=== PATIENT | male | born 1965 | race Caucasian/White ===

== ENCOUNTER 2018-12-02 19:33 | Emergency (ER) | payer BC, SELFPAY ==
[2018-12-02 19:34] VITALS: BP 165/86; PULSE 85; RESP 16; TEMP 36.7; O2SAT 98; BMI 29.7
--- NOTE | 2018-12-02 20:11 | ED.DCSUM_ITS ---
- ER Visit Summary Date of Service: 12/02/18 Chief Complaint: Lower back pain. History of Present Illness: The patient is a 53 M history of BPH and prior back issues but no prior back surgery. Patient states Monday about a week ago he was dragging a large barrel that weighed several 100 pounds. The next day started having pain in his lower back is progressively worsened. He denies any bowel or bladder incontinence or lower extremity weakness. No fever. He had no fall or other injury. He denies any bowel or bladder incontinence. Patient saw his chiropractor at an adjusted did not improve his symptoms. Also saw his primary care physician's office and was placed on Naprosyn and Flexeril with l imited relief. Physical Examination: Middle-aged male vital signs stable. He is afebrile. He does not look septic or toxic. HEENT exam unremarkable. Neck nontender. Lungs clear to auscultation. Heart regular rhythm no murmur. Abdomen is soft and nontender normal bowel sounds no peritoneal signs. No pulsatile mass. Extremities moves all 4. Neurovascular intact. 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 Lower extremities he has no cauda equina. No saddle anesthesia. Normal medial thigh sensation. Normal dorsi plantar flexion. Negative straight leg raise bilaterally. Back exam he is tenderness over his proximal lumbar spine around L1-2 area. There is no redness or warmth. There is no ecchymosis or bruising or signs of trauma. There is really no significant paraspinal soft tissue pain or spasm. There is no bony deformities. Thoracic spine is nontender. Neurologically is awake and alert with no focal motor or sensory deficits and again no cauda equina or radiculopathy at this time. Test Results: None Emergency Department Course and Treatment: Patient be treated with IM morphine. IM Toradol. P.o. Zofran. Treatment Plan: Discharged home. He is already on Naprosyn and Flexeril at home. Follow-up with primary care physician if this is not improving. If his pain continues he may need an MRI. Disposition: Discharge Impression: Acute low back pain Rule out acute disc inflammation This note was generated with [employer] dictation software. It may contain incorrect words, spelling, and punctuation that were not noted in review of the chart prior to signing ED Disposition - Plan for ED Patient: Referrals: Bursley,Margarito, MD [Primary Care Provider] -
--- NOTE | 2018-12-02 20:14 | DCINST.ED_ITS ---
ED Disposition - Plan for ED Patient: Disposition: Home or Assisted Living Instructions: BACK PAIN (Acute or Chronic) Prescriptions: Hydrocodone/Acetaminophen [Hagerman 10-325 Tablet] 1 ea PO 4X/DAY PRN PRN 3 Days #10 tab PRN Reason: Pain Score 1-12/13 Prescription Printed Referrals: Margarito Fraire MD [Primary Care Provider] - 1 Week if not improving Additional Instructions: Continue Naprosyn for pain and inflammation. Flexeril for muscle relaxant. I did write you a Hagerman as needed for more severe pain. Follow-up with your doctor if not improving you may need an MRI. If you develop leg weakness or bowel or bladder incontinence and need to return to be re-seen in the ER.
[2018-12-02] MEDS: Ketorolac 60 MG/2 ML Vial IM (20:26)
[2018-12-02] MEDS: Ondansetron 8 MG Tablet PO (20:26)
[2018-12-02] MEDS: morphine 10 MG/ML Syringe IM (20:26)
[2018-12-02 20:35] VITALS: PULSE 72; RESP 16
== END 2018-12-02 20:47 | disposition home or self-care (01) ==
PROVIDERS: Emergency Provider Emergency Medicine; Family Provider Family Medicine; PCP Family Medicine
DX: M54.5 Low back pain (principal); N40.0 Benign prostatic hyperplasia without lower urinary tract symptoms; Z72.0 Tobacco use
CPT/HCPCS: 96372; 99283

== ENCOUNTER 2019-05-09 00:32 | Emergency (ER) | payer SELFPAY ==
[2019-05-09 00:33] VITALS: BP 199/119; PULSE 76; RESP 15; TEMP 36.7; O2SAT 98; BMI 29.4
--- NOTE | 2019-05-09 00:42 | ED.DCSUM_ITS ---
History of Present Illness Chief Complaint: Chest Pain Informant: Patient Onset: Hours - 2 hours Context: Gradual Onset Current Severity: Moderate Maximum Severity: Moderate Narrative: Patient presents with proximally 2 hours of left-sided chest pressure. He does feel somewhat short of breath. He states he was doing some cleaning at the time. He was using some bleach but did not feel the chemicals were very strong. He does note increased shortness of breath with exertion over the past week. Patient denies known history of cardiac disease. He reports having a stress test approximately 6 years ago that he believes was unremarkable. He does report a history of high cholesterol but does not take any medication for it. He is a smoker. He has a family history of heart disease. - Past Medical History (1) Kidney stone Status: Resolved (2) Back pain Status: Chronic (3) High cholesterol Status: Chronic Past Medical History - Allergies and Home Meds Allergies/Adverse Reactions: Allergies diphenhydramine [From Benadryl] Allergy (Verified 05/09/19 00:37) Hives Primary Care Physician: Margarito Fraire MD [Primary Care Provider] - Prior records reviewed: Yes Lives: Spouse/ Significant Other Smoking Status: Current every day smoker Review of Systems General: Denies: Chills, Fever Eyes: Denies: Visual changes - bilaterally ENT: Denies: Bilateral ear pain Cardiovascular: Reports: Chest pain Respiratory: Reports: Dyspnea. Denies: Cough, Sputum Gastrointestinal: Denies: Abdominal pain, Nausea, Vomiting, Diarrhea Genitourinary: Denies: Dysuria Musculoskeletal: Denies: Extremity Pain Skin: Denies: Rash Neurological: Denies: Headache Allergy: Denies: Uticaria Physical Exam Vital Signs/Narrative: Vital Signs Temp Pulse Resp BP Pulse Ox 05/09/19 00:33 98.0 F 76 15 199/119 H 98 Inital Vital Signs reviewed: Yes General: Well nourished, Well developed Head: Normocephalic ENT: Moist mucous membranes Neck: Supple Cardiovascular: Regular rate, Regular rhythm Respiratory: No distress, CTA bilaterally, Chest nontender Abdomen: Soft, Nontender Skin: Normal color Neurological: Alert, Oriented x3 Psychological: Normal affect Diagnostic/Tx/Re-eval Impressions Chest X-Ray 05/09/19 00:42 IMPRESSION: Basilar atelectasis or scarring, unchanged. Electronically Signed: Sharita Miller MD at 1:30 EST , Service support , Chest CTA 05/09/19 01:12 IMPRESSION: No demonstrated pulmonary embolism, aneurysm, leak or arterial dissection. Cardiomegaly. Compression of dependent parenchyma, atelectasis or scarring in the left base. Mild hazy parenchymal opacification likely exaggerated by low lung volume. Etiology such as pneumonitis possible. Electronically Signed: Sharita Miller MD at 2:26 EST , Service support , 05/09/19 00:42 Chest 1 View (Portable) [RAD] Stat 05/09/19 01:12 CTA Chest W/WO Contrast [CT] Stat Laboratory Results 05/09/19 05/09/19 00:40 00:40 WBC 12.0 H RBC 5.73 Hgb 17.2 H Hct 51.8 MCV 90.4 MCH 30.0 MCHC 33.2 RDW Std Deviation 42.0 RDW Coeff of Terell 12.8 Plt Count 275 MPV 10.8 Immature Gran % (Auto) 0.300 Neut % (Auto) 62.5 Lymph % (Auto) 26.3 Ashley % (Auto) 8.8 Eos % (Auto) 1.4 Baso % (Auto) 0.7 Absolute Neuts (auto) 7.5 Absolute Lymphs (auto) 3.15 Nucleated RBC % 0 Sodium 141 Potassium 3.9 Chloride 107 Carbon Dioxide 30.0 Anion Gap 4 L BUN 18 Creatinine 1.08 Estim Creat Clear Calc 83.28 Est GFR (MDRD) Af Amer 91 Est GFR (MDRD) Non-Af 76 BUN/Creatinine Ratio 16.7 Glucose 104 Calcium 9.2 Troponin I < 0.015 - EKG Initial EKG Interpretation: Sinus Rhythm - Sinus at 75 with a bifascicular block. This is a new change when compared to prior study of December 2010. Follow-up EKG Interpretation: Sinus Rhythm - Sinus at 66 with a bifascicular block. No acute ischemia. - Medical Decision Making Patient was given aspirin, morphine, and Zofran on arrival. On repeat evaluation pain is improved. Patient's systolic blood pressures come down into the 160s with no further intervention. Test results are discussed with patient and at bedside. Patient does have risk factors for cardiac disease and will be admitted for observation overnight with cycling of cardiac enzymes and further evaluation. Addendum: Prior to evaluation by the hospitalist, significant other came to the nurses desk and stated the patient wanted to go home. I went back and discussed the risks with the patient. I did advise him at this time his troponin is negative, however he is only 2 hours of symptoms and I cannot guarantee that this is not his heart. He certainly has multiple risk factors. Patient is very adamant that he does not want to stay in the hospital and feels much improved at this time. He is encouraged to return at any time. I did advise him that if he goes home and has an event he may not make it back to the hospital. He voices understanding and agreement. is with him at bedside. She does raise concern that the patient does not currently have insurance and was not able to follow-up with his previously assigned doctor. I will give him information 5 Sanjana Thompson for follow-up as well. ED Disposition - Plan for ED Patient: Disposition: Home or Assisted Living Diagnosis: Chest pain Instructions: CHEST PAIN, Uncertain Cause Referrals: Sanjana Thompson [NON-STAFF] - As soon as possible
--- NOTE | 2019-05-09 00:42 | EKG12_ITS ---
Test Reason : CP Blood Pressure : / mmHG Vent. Rate : 075 BPM Atrial Rate : 075 BPM P-R Int : 156 ms QRS Dur : 148 ms QT Int : 406 ms P-R-T Axes : 043 -49 002 degrees QTc Int : 453 ms Normal sinus rhythm Right bundle branch block Left anterior fascicular block Bifascicular block Cannot rule out Inferior infarct (masked by fascicular block?) , age undetermined Abnormal ECG Confirmed by HUNTER GALEANO, ANDERSON ([id number]), department editor BRITANY COUGHLIN ([id number]) on 05/10/2019 8:12:07 AM Referred By: CARA Confirmed By:BASIA HARRISON MD
--- NOTE | 2019-05-09 00:42 | RAD_ITS ---
STUDY: X-RAY CHEST REASON FOR EXAM: Male, 53 years old. Chest pain that started 2 hours ago,cleaning.c/o sob TECHNIQUE: Single AP portable view of the chest. COMPARISON: 08/27/2012 FINDINGS: There are superimposed monitor leads. Compression of the tendon parenchyma. Likely bronchial wall thickening/bronchiectasis in the right base, unchanged. There is no demonstrated pleural abnormality. Normal size heart. Normal mediastinum and monik. Normal visualized pulmonary arteries. Normal visualized aortic arch and descending thoracic aorta. Normal visualized thoracic spine. Normal visualized ribs, clavicles, and shoulders. There is no demonstrated abnormality of the visualized soft tissue structures of the upper abdomen. RAD/Chest 1 View (Portable) IMPRESSION: Basilar atelectasis or scarring, unchanged. Electronically Signed: Sharita Miller MD at 1:30 EST , Service support ,
[2019-05-09 00:49] LABS: Absolute Lymphocyte Count 3.15 X10^3/uL (0.83-4.51); Absolute Neutrophil Count 7.5 X10^3/uL (2.0-7.7); Basophil# 0.08 X10^3/uL; Basophil% 0.7 % (0-1); Eosinophil# 0.17 X10^3/uL; Eosinophils% 1.4 % (0-5); Hematocrit 51.8 % (40-54); Hemoglobin 17.2 g/dL (13.0-16.5); Lymphocyte # 3.15 X10^3/ul (4.0); Lymphocyte % 26.3 % (19-41); Mean Corp Hgb Conc 33.2 g/dL (32-36); Mean Corpuscular Volume 90.4 fL (80-94); Mean Platelet Vol. 10.8 fl (6.2-12.0); Monocyte# 1.05 X10^3/uL; Monocyte% 8.8 % (0-10); NRBC Flagged by Analyzer 0 % (0-5); Neutrophil # 7.48 X10^3/uL (2.7-7.7); Neutrophil % 62.5 % (47-70); Platelet Count 275 K/mm3 (150-450); RBC Distribution Width CV 12.8 % (11.6-14.6); Red Blood Count 5.73 M/mm3 (4.6-6.2)
[2019-05-09] MEDS: Morphine 4 MG/ML Syringe IV (00:49)
[2019-05-09] MEDS: Aspirin 81 MG TAB.CHEW 324 MG PO (00:50)
[2019-05-09] MEDS: Ondansetron 4 MG/2 ML Vial IV (00:52)
[2019-05-09] MEDS: 0.9% Normal Saline 1,000 ML 150 ML IV (00:55)
[2019-05-09 00:57] VITALS: BP 162/104; PULSE 91; RESP 17; O2SAT 94
[2019-05-09 01:04] LABS: Anion Gap 4 (5-15); BUN 18 mg/dL (7-18); BUN/Creat Ratio 16.7 RATIO (10-20); Calcium,Total 9.2 mg/dL (8.5-10.1); Chloride 107 mmol/L (98-107); Creatinine, Serum 1.08 mg/dL (0.70-1.30); EST Glomerular Filtration Rate 76 mL/min (>60); Est Glom Filt Rate - Afr Amer 91 mL/min (>60); Estimated Creatinine Clearance 83.28 ml/min; Glucose 104 mg/dL (74-106); Potassium 3.9 mmol/L (3.5-5.1); Sodium Level 141 mmol/L (136-145)
--- NOTE | 2019-05-09 01:06 | EKG12_ITS ---
Test Reason : REPEAT Blood Pressure : / mmHG Vent. Rate : 066 BPM Atrial Rate : 066 BPM P-R Int : 162 ms QRS Dur : 154 ms QT Int : 424 ms P-R-T Axes : 049 -47 -05 degrees QTc Int : 444 ms Normal sinus rhythm Right bundle branch block Left anterior fascicular block Bifascicular block Cannot rule out Inferior infarct (masked by fascicular block?) , age undetermined Abnormal ECG Confirmed by HUNTER GALEANO, ANDERSON ([id number]), book editor BRITANY COUGHLIN ([id number]) on 05/10/2019 8:12:25 AM Referred By: CARA Confirmed By:BASIA HARRISON MD
--- NOTE | 2019-05-09 01:12 | CT_ITS ---
STUDY: CTA CHEST REASON FOR EXAM: Male, 53 years old. CP, SOB STARTED 2 HOURS AGO. H/O DVT RADIATION DOSAGE (If Supplied By Facility): CTDIvol = ( 13.85 ) mGy, DLP = ( 528.27 ) mGycm TECHNIQUE: The examination was performed with the intravenous administration of IV 100 ML ISOVUE 370. Post-processing of the angiographic images was performed, with multiplanar reformation and 3D reconstruction. There is image blurring as a result of cardiac motion. Diagnostic accuracy is somewhat reduced. However, there is substantial diagnostic information remaining available on this study. Individualized dose optimization techniques were used for this CT. COMPARISON: None. FINDINGS: Normal enhancement of the main pulmonary artery and right and left pulmonary arteries. Normal enhancement of the bilateral peripheral pulmonary arteries. There is no demonstrated pulmonary embolism. Normal thoracic aorta and visualized great vessels. There is no demonstrated aortic dissection. There is cardiomegaly. Normal mediastinum. Right hilar lymph node 1 x 1.5 cm. Normal visualized trachea and bronchi. The lungs are under expanded. There is elevation of the right hemidiaphragm. Hazy airspace disease in the lung bases and deep dependent parenchyma. Component of atelectasis or scarring in the left lower lobe.. Normal pleura. Normal chest wall structures. Normal osseous structures. Normal visualized upper abdomen. CT/CTA Chest W/WO Contrast IMPRESSION: No demonstrated pulmonary embolism, aneurysm, leak or arterial dissection. Cardiomegaly. Compression of dependent parenchyma, atelectasis or scarring in the left base. Mild hazy parenchymal opacification likely exaggerated by low lung volume. Etiology such as pneumonitis possible. Electronically Signed: Sharita Miller MD at 2:26 EST , Service support ,
[2019-05-09 02:11] VITALS: BP 162/104; PULSE 64; RESP 14; O2SAT 99
[2019-05-09 02:47] VITALS: BP 169/112; PULSE 87; RESP 18; O2SAT 94
== END 2019-05-09 02:48 | disposition home or self-care (01) ==
PROVIDERS: Emergency Provider Emergency Medicine; PCP Family Medicine
DX: R07.9 Chest pain, unspecified (principal); E78.00 Pure hypercholesterolemia, unspecified; I45.10 Unspecified right bundle-branch block; Z82.49 Family history of ischemic heart disease and other diseases of the circulatory system; Z86.718 Personal history of other venous thrombosis and embolism; Z87.442 Personal history of urinary calculi; Z88.8 Allergy status to other drugs, medicaments and biological substances
CPT/HCPCS: 71045; 71275; 80048; 84484; 85025; 93005; 96361; 96374; 96375; 99284; Q9967; A4216; J2405

== ENCOUNTER 2021-02-17 01:00 | Observation (INO) | payer MEDICAID, SELFPAY ==
[2021-02-17] VITALS (40 sets, daily range): BP systolic 136–211; BP diastolic 81–119; PULSE 61–88; RESP 10–20; TEMP 36.2–36.6; O2SAT 90–98; BMI 33.9; BMI 33.7
--- NOTE | 2021-02-17 01:14 | CT_ITS ---
STUDY: CTA CHEST AND CTA ABDOMEN/PELVIS WITH CONTRAST REASON FOR EXAM: Male, 55 years old. ? Dissection RADIATION DOSAGE (If Supplied By Facility): CTDIvol = ( 20.23 ) mGy, DLP = ( 1702.04 ) mGycm TECHNIQUE: The examination was performed with the intravenous administration of IV 100mL Isovue-370. Post-processing of the angiographic images was performed, with multiplanar reformation and 3D reconstruction. Individualized dose optimization techniques were used for this CT. COMPARISON: 05/09/2019. FINDINGS: CTA Chest Normal enhancement of the main pulmonary artery and right and left pulmonary arteries. Normal enhancement of the bilateral peripheral pulmonary arteries. There is no demonstrated pulmonary embolism. There is atherosclerotic calcification of the aortic arch with tortuosity. There is no demonstrated aortic dissection. Normal heart and pericardium. Normal mediastinum. Normal hilar regions. Normal visualized trachea and bronchi. The lungs are underexpanded. There is fullness of the central vessels suggestive of vascular crowding versus vascular congestion. There is mild posterior dependent atelectasis. Normal pleura. Normal chest wall structures. There are degenerative changes of thoracic spine. Upper abdominal structures are described in the distended accompanying CT of the abdomen and pelvis report. CTA Abdomen T Pelvis The visualized lung bases are unremarkable. The visualized portions of the heart are within normal limits. Normal liver. Normal gallbladder and extrahepatic biliary system. Normal spleen. Normal pancreas. There is mild symmetric enlargement of the adrenal glands suggesting adrenal hyperplasia. Minimal bilateral perinephric stranding otherwise normal right kidney. Normal left kidney. Normal visualized stomach. Nonspecific borderline thickening of small bowel, cannot exclude mild enteritis. Mild scattered diverticulosis with no signs of diverticulitis. The appendix is visualized and appears normal. Mild atherosclerosis with no signs of dissection or aneurysm. No significant stenosis. Normal inferior vena cava. Normal retroperitoneum. Normal urinary bladder. Small left-sided fat-containing inguinal hernia of indeterminate clinical significance. There are diffuse degenerative changes of the visualized lumbar spine. CT/CTA Chst, Abd, Pel W and/or WO IMPRESSION: Atherosclerotic disease of aorta with no aneurysm or dissection. No significant stenosis. No pulmonary embolus. Possible mild vascular congestion versus vascular crowding with posterior dependent atelectasis. Nonspecific borderline thickening of small bowel wall, cannot exclude mild enteritis in the appropriate clinical context. Otherwise no acute process within the abdomen and pelvis. Electronically Signed: Lizeth Dia MD at 2:11 EST , Service support ,
[2021-02-17] MEDS: Aspirin 81 MG TAB.CHEW 324 MG PO (01:19)
[2021-02-17] MEDS: Nitroglycerin SL (ED/IMG/CATH) 0.4 MG TABLET SL ×3 (01:20→01:54)
[2021-02-17 01:21] LABS: Absolute Lymphocyte Count 3.21 X10^3/uL (0.83-4.51); Absolute Neutrophil Count 4.5 X10^3/uL (2.0-7.7); Basophil# 0.06 X10^3/uL; Basophil% 0.7 % (0-1); Eosinophil# 0.18 X10^3/uL; Hematocrit 52.3 % (40-54); Hemoglobin 17.3 g/dL (13.0-16.5); Lymphocyte # 3.21 X10^3/ul (0.83-4.51); Lymphocyte % 36.1 % (19-41); Mean Corp Hgb Conc 33.1 g/dL (32-36); Mean Corpuscular Hgb 29.9 pg (27.0-32.0); Mean Corpuscular Volume 90.3 fL (80-94); Mean Platelet Vol. 11.9 fl (6.2-12.0); Monocyte# 0.92 X10^3/uL; Monocyte% 10.4 % (0-10); NRBC Flagged by Analyzer 0 % (0-5); Neutrophil # 4.48 X10^3/uL (2.7-7.7); Neutrophil % 50.5 % (47-70); Platelet Count 243 K/mm3 (150-450); RBC Distribution Width CV 12.6 % (11.6-14.6); RBC Distribution Width SD 41.4 fl (35.1-43.9); Red Blood Count 5.79 M/mm3 (4.6-6.2); White Blood Count 8.9 K/mm3 (4.4-11.0)
[2021-02-17] MEDS: 0.9% Normal Saline 1,000 ML 999 ML IV (01:21)
--- NOTE | 2021-02-17 01:21 | EKG12_ITS ---
Test Reason : CP Blood Pressure : / mmHG Vent. Rate : 087 BPM Atrial Rate : 087 BPM P-R Int : 158 ms QRS Dur : 144 ms QT Int : 390 ms P-R-T Axes : 081 -70 040 degrees QTc Int : 469 ms Normal sinus rhythm Right bundle branch block Left anterior fascicular block Bifascicular block Septal infarct , age undetermined , cannot be excluded Abnormal ECG Confirmed by BELEN GALEANO, DANNI ([id number]), editorial writer BRITANY COUGHLIN ([id number]) on 02/19/2021 1:02:51 PM Referred By: STEPHANI Confirmed By:DANNI GLOVER MD
[2021-02-17 01:26] LABS: International Normalized Ratio 0.9; Prothrombin Time (Protime)PT. 11.9 SECONDS (11.7-14.9)
[2021-02-17 01:27] LABS: Partial Thromboplast Time 27.6 Seconds (24.1-36.2)
[2021-02-17] MEDS: Ondansetron 4 MG/2 ML Vial IV (01:30)
[2021-02-17] MEDS: morphine 8 MG/ML Syringe 6 MG IV (01:31)
[2021-02-17 01:35] LABS: Anion Gap 3 (5-15); BUN 14 mg/dL (7-18); BUN/Creat Ratio 11.9 RATIO (10-20); Calcium,Total 9.3 mg/dL (8.5-10.1); Chloride 106 mmol/L (98-107); Creatinine, Serum 1.18 mg/dL (0.70-1.30); EST Glomerular Filtration Rate 68 mL/min (>60); Est Glom Filt Rate - Afr Amer 82 mL/min (>60); Estimated Creatinine Clearance 74.45 ml/min; Glucose 141 mg/dL (74-106); Potassium 3.8 mmol/L (3.5-5.1); Sodium Level 142 mmol/L (136-145); Troponin-I HS 21 pg/mL (3.0-78.0)
[2021-02-17] MEDS: HYDROmorphone 1 MG/ML Syringe IV (02:03)
--- NOTE | 2021-02-17 03:01 | EDS_ITS ---
HPI History of Present Illness Chief Complaint: Chest Pain Narrative Narrative: Patient is a 55-year-old male who has a history of hypertension hyperlipidemia but is not taking meds for them as well as smoking and a brother who had a heart attack at roughly the same age. He states that about 1 hour prior to arrival he developed spontaneous pain in his left chest that he states feels like someone is standing on him. He states with this he feels short of breath and began breaking out in a sweat. He states based on his family history of heart disease he was concerned he was having a heart attack and therefore comes to the hospital for evaluation [facility] Medical History no medical history Home Medications tamsulosin 0.4 mg PO DAILY 05/09/19 [History Last Taken Unknown] Allergy/AdvReac Type Severity Reaction Status Date / Time diphenhydramine Allergy Hives Verified 02/17/21 01:05 [From Winifred] Social History Smoking Status: Current every day smoker tobacco type: cigarettes ROS ROS ED Constitutional Constitutional ED: Reports sweats; Denies chills or fever(s) ENT ENT ED: Denies sore throat Cardiovascular Cardiovascular: Reports chest pain; Denies palpitations or racing heartbeat Respiratory/Chest Respiratory/Chest: Reports dyspnea; Denies cough Gastrointestinal Gastrointestinal: Denies abdominal pain, diarrhea, nausea or vomiting Genitourinary Genitourinary ED: Denies dysuria Musculoskeletal Musculoskeletal: Denies myalgias Integumentary Denies rash Neurologic Neurologic: Denies headache(s) Hematologic/Lymphatic Hematologic/Lymphatic: Denies easy bleeding or easy bruising EXAM Physical Exam Const Vital Signs: 02/17/21 01:00 02/17/21 01:05 02/17/21 01:20 Temperature 97.6 F L Temperature Source Temporal Pulse Rate 88 86 Respiratory Rate 20 H Respiratory Effort Normal Respiratory Pattern Tachypnea Blood Pressure 211/119 H 201/117 H Blood Pressure Mean 149 Pulse Ox 96 Oxygen Delivery Method Room Air Oxygen Flow Rate (L/min) 02/17/21 01:25 02/17/21 01:48 02/17/21 01:54 Temperature Temperature Source Pulse Rate 85 Respiratory Rate 16 Respiratory Effort Respiratory Pattern Blood Pressure 201/117 H 172/102 H 171/100 H Blood Pressure Mean 125 Pulse Ox 94 98 Oxygen Delivery Method Nasal Cannula Nasal Cannula Oxygen Flow Rate (L/min) 2 4 02/17/21 02:06 02/17/21 03:26 02/17/21 04:11 Temperature Temperature Source Pulse Rate 74 74 64 Respiratory Rate 18 16 10 L Respiratory Effort Respiratory Pattern Blood Pressure 168/104 H 160/113 H 144/82 H Blood Pressure Mean 125 128 102 Pulse Ox 98 94 95 Oxygen Delivery Method Nasal Cannula Nasal Cannula Nasal Cannula Oxygen Flow Rate (L/min) 4 2 2 Positive well nourished, well developed and obese General Appearance ED: well developed and diaphoretic Nutritional Appearance: obese HEENT Reports moist mucous membranes Eyes PERRL and EOMs intact bilaterally Neck supple and no JVD Chest Wall palpation of chest normal Resp normal respiratory effort and clear to auscultation bilaterally Cardio regular rate and regular rhythm Rate: other Other Details: Radial pulses are plus 2 out of 4 bilaterally are equal and symmetric GI normal to inspection, nondistended, normoactive bowel sounds, non-tender, non- distended and no masses GI Narrative: No voluntary guarding or rigidity no pulsatile mass Auscultation: normoactive bowel sounds Palpation: soft Extremity Extremity Narrative: +1-2 pitting edema to the bilateral lower extremities that is equal and symmetric. Negative Homans' sign bilaterally Neuro oriented x3 and CN's II-XII intact bilaterally Sensorium / Orientation: alert Motor Exam: strength 5/5 throughout Psych mental status grossly normal Skin no rashes or lesions noted MDM MDM MDM Narrative Medical decision making narrative: Patient presented to the ER hypertensive he was also pale and diaphoretic and with his complaint of crushing chest discomfort and his multiple risk factors there was concern he was having an acute DE. Basic cardiac work-up was started and EKG showed a bifascicular block but no obvious STEMI. However based on the patient's presentation and risk factors I did elect to send the EKG to cardiology on-call. They reviewed the EKG and agree that there is no active STEMI present. With the patient's hypertension I did also elect to perform a CTA to rule out dissection. CT revealed no pulmonary embolus or dissection changes. The patient had minimal symptom improvement with nitro trial and therefore was given morphine followed by Dilaudid. With this he did have improvement of his pain. His initial and delta troponin were normal without any clinically significant variation between the 2. However he has multiple cardiac risk factors and was pale and d iaphoretic upon arrival and therefore I do not feel it is safe for discharge. The case was discussed with medicine on-call and they do agree to accept the patient at this time for continued monitoring and cardiac evaluation. Lab Data Attestation: I reviewed the patient's lab results. Labs: Laboratory Results - last 24 hr 02/17/21 02/17/21 02/17/21 01:05 01:05 01:05 WBC 8.9 RBC 5.79 Hgb 17.3 H Hct 52.3 MCV 90.3 MCH 29.9 MCHC 33.1 RDW Std Deviation 41.4 RDW Coeff of Terell 12.6 Plt Count 243 MPV 11.9 Immature Gran % (Auto) 0.300 Neut % (Auto) 50.5 Lymph % (Auto) 36.1 [place] % (Auto) 10.4 H Eos % (Auto) 2.0 Baso % (Auto) 0.7 Absolute Neuts (auto) 4.5 Absolute Lymphs (auto) 3.21 Nucleated RBC % 0 PT 11.9 INR 0.9 APTT 27.6 Sodium 142 Potassium 3.8 Chloride 106 Carbon Dioxide 33.0 H Anion Gap 3 L BUN 14 Creatinine 1.18 Estim Creat Clear Calc 74.45 Est GFR (MDRD) Af Amer 82 Est GFR (MDRD) Non-Af 68 BUN/Creatinine Ratio 11.9 Glucose 141 H Calcium 9.3 Troponin I High Sens 21 02/17/21 03:24 WBC RBC Hgb Hct MCV MCH MCHC RDW Std Deviation RDW Coeff of Terell Plt Count MPV Immature Gran % (Auto) Neut % (Auto) Lymph % (Auto) [place] % (Auto) Eos % (Auto) Baso % (Auto) Absolute Neuts (auto) Absolute Lymphs (auto) Nucleated RBC % PT INR APTT Sodium Potassium Chloride Carbon Dioxide Anion Gap BUN Creatinine Estim Creat Clear Calc Est GFR (MDRD) Af Amer Est GFR (MDRD) Non-Af BUN/Creatinine Ratio Glucose Calcium Troponin I High Sens 24 Radiography Diagnostic Testing: Clinical Impression(s) from Imaging Studies Chest/Abdomen/Pelvis CTA 02/17/21 01:14 IMPRESSION: Atherosclerotic disease of aorta with no aneurysm or dissection. No significant stenosis. No pulmonary embolus. Possible mild vascular congestion versus vascular crowding with posterior dependent atelectasis. Nonspecific borderline thickening of small bowel wall, cannot exclude mild enteritis in the appropriate clinical context. Otherwise no acute process within the abdomen and pelvis. Electronically Signed: Lizeth Dia MD at 2:11 EST , Service support , Discharge Plan Triage Chief Complaint: Chest Pain ED Provider: Yusef Verduzco Dx/Rx/DC Orders Clinical Impression: Chest pain Prescriptions: No Action tamsulosin 0.4 MG capsule 0.4 mg PO DAILY RF: 0 Primary Care Provider: Care Physician,No Primary Referrals: Care Physician,No Primary [Primary Care Provider] - Disposition Disposition: Acute Care Hospital [facility]
[2021-02-17 04:07] LABS: Troponin-I HS 24 pg/mL (3.0-78.0)
--- NOTE | 2021-02-17 05:11 | PCS.PANDOC ---
PANDEMIC DOCUMENTATION INITIATED: Date: 10/19/2020 Time: 190
--- NOTE | 2021-02-17 05:15 | EKG12_ITS ---
Test Reason : CP ADMIN Blood Pressure : / mmHG Vent. Rate : 065 BPM Atrial Rate : 065 BPM P-R Int : 154 ms QRS Dur : 152 ms QT Int : 454 ms P-R-T Axes : 061 -48 -06 degrees QTc Int : 472 ms Normal sinus rhythm Right bundle branch block Left anterior fascicular block Bifascicular block Abnormal ECG Confirmed by BELEN GALEANO, DANNI ([id number]), editor newspaper BRITANY COUGHLIN ([id number]) on 02/19/2021 1:08:33 PM Referred By: DANGELO Confirmed By:DANNI GLOVER MD
--- NOTE | 2021-02-17 05:22 | HP.PCM.HOS_ITS ---
HPI - General General Date of Admission: 02/17/21 Date of Service: 02/17/21 Chief Complaint: Chest pain HPI Narrative ROSALINO NORMAN, is a 55 M who presents to the emergency room at [facility] with a chief complaint of left-sided chest pain which he described as pressure like in nature, he described it as if somebody was pushing on his chest wall. Patient was at rest when this pain started, approximately shortly after midnight this morning, the discomfort did not radiate into the jaw or down his arm, patient became diaphoretic with this discomfort, he did not become nauseated. Work-up in the emergency room included a CTA of his chest which showed no evidence of pulmonary emboli or acute process, patient's EKG showed normal sinus rhythm with a bifascicular block-right bundle branch block and left anterior hemiblock. Patient was given narcotics for his chest discomfort in the emergency room but he stated at the time of my examination approximately 4 hours after he came to the ER that his chest pain was a 3 out of 10. Per patient's medical record, he was seen in 2019 for chest pain but declined an admission to the hospital even though it was recommended by the emergency room physician. Patient currently does not have a physician, he has chronic medical problems that he does not take medications for. I talked at length with his who was in the room at the time of my examination, patient is also refused to take the COVID-19 vaccine-I strongly recommended that he reconsider this. Patient states his brother and sister have had heart disease and he is afraid that he may have it also-despite this, patient smokes a pack of cigarettes a day. Patient is currently n.p.o., he will be placed in observation status on PCU and have a repeat troponin drawn at 8:00 this morning, if this is negative, he may be able to undergo a resting stress test-patient has a history of chronic back pain and I am not sure he would be able to walk on a treadmill, also, I strongly suspect he has a component of COPD. [facility] Medical History (Updated 02/17/21 @ 05:20 by Linda Manriquez) Anxiety Asthma Bipolar disorder Chest pain COPD (chronic obstructive pulmonary disease) Depression Smoker Substance abuse Medical History no medical history Home Medications tamsulosin 0.4 mg PO DAILY 05/09/19 [History Last Taken Unknown] Allergy/AdvReac Type Severity Reaction Status Date / Time diphenhydramine Allergy Hives Verified 02/17/21 01:05 [From [facility]] Social History Smoking Status: Current every day smoker tobacco type: cigarettes ROS Constitutional Constitutional: Denies anorexia, change in weight, fever(s), night sweats or weakness Eyes Eyes: Denies blurry vision, change in vision, discharge from eye(s) or eye pain ENT HEENT: Denies abnormal hearing, dysphagia or ear pain Cardiovascular Cardiovascular: Reports chest pain; Denies claudication, edema or palpitations Respiratory/Chest Respiratory/Chest: Reports wheezing; Denies cough, dyspnea, hemoptysis, productive cough, shortness of breath at rest or shortness of breath with exertion Gastrointestinal Gastrointestinal: Denies abdominal pain, constipation, diarrhea, hematemesis, hematochezia, melena, nausea or vomiting Genitourinary Genitourinary: Denies dysuria, hematuria, urinary frequency, urinary hesitancy, urinary incontinence or urinary urgency Musculoskeletal Musculoskeletal: Denies back pain, joint pain, joint stiffness, joint swelling, myalgias or neck pain Neurologic Neurologic: Denies abnormal gait, abnormal speech, dizziness, focal weakness, headache(s), loss of vision, numbness, other visual disturbances, paresthesias, syncope or tingling Psychiatric Psychiatric: Denies anxiety, cognitive impairment, depression, irritability, mood swings or suicidal ideation Endocrine Endocrinology: Denies change in body appearance, cold intolerance, excessive sweating, heat intolerance, polydipsia or polyuria Hematologic/Lymphatic Hematologic/Lymphatic: Denies none, anemia, easy bleeding, easy bruising or lymphadenopathy Allergic/Immunologic Allergic/Immunologic: Denies rhinitis, urticaria, eczemia or asthma Vital Signs Vital Signs Vital Signs: 02/17/21 01:00 02/17/21 01:05 02/17/21 01:20 Temperature 97.6 F L Temperature Source Temporal Pulse Rate 88 86 Respiratory Rate 20 H Respiratory Effort Normal Respiratory Pattern Tachypnea Blood Pressure 211/119 H 201/117 H Blood Pressure Mean 149 Blood Pressure Source Blood Pressure Position Blood Pressure Location Pulse Ox 96 Oxygen Delivery Method Room Air Oxygen Flow Rate (L/min) 02/17/21 01:25 02/17/21 01:48 02/17/21 01:54 Temperature Temperature Source Pulse Rate 85 Respiratory Rate 16 Respiratory Effort Respiratory Pattern Blood Pressure 201/117 H 172/102 H 171/100 H Blood Pressure Mean 125 Blood Pressure Source Blood Pressure Position Blood Pressure Location Pulse Ox 94 98 Oxygen Delivery Method Nasal Cannula Nasal Cannula Oxygen Flow Rate (L/min) 2 4 02/17/21 02:06 02/17/21 03:26 02/17/21 04:11 Temperature Temperature Source Pulse Rate 74 74 64 Respiratory Rate 18 16 10 L Respiratory Effort Respiratory Pattern Blood Pressure 168/104 H 160/113 H 144/82 H Blood Pressure Mean 125 128 102 Blood Pressure Source Blood Pressure Position Blood Pressure Location Pulse Ox 98 94 95 Oxygen Delivery Method Nasal Cannula Nasal Cannula Nasal Cannula Oxygen Flow Rate (L/min) 4 2 2 02/17/21 04:38 02/17/21 04:39 02/17/21 05:14 Temperature 97.3 F L 97.3 F L 97.2 F L Temperature Source Oral Oral Oral Pulse Rate 86 72 67 Respiratory Rate 14 14 18 Respiratory Effort Respiratory Pattern Blood Pressure 164/83 H 164/83 H 159/94 H Blood Pressure Mean 110 110 115 Blood Pressure Source Monitor Blood Pressure Position Semi-Fowlers Blood Pressure Location Left Arm Pulse Ox 93 93 94 Oxygen Delivery Method Nasal Cannula Nasal Cannula Room Air Oxygen Flow Rate (L/min) 2 2 02/17/21 05:19 Temperature Temperature Source Pulse Rate Respiratory Rate Respiratory Effort Respiratory Pattern Blood Pressure Blood Pressure Mean Blood Pressure Source Blood Pressure Position Blood Pressure Location Pulse Ox 93 Oxygen Delivery Method Nasal Cannula Oxygen Flow Rate (L/min) 2 Weight Weight: 109.7 kg Body Mass Index (BMI) 33.7 Physical Exam Const alert, oriented x3, no apparent distress and healthy appearing General Appearance: cooperative, well kempt and well developed Orientation / Consciousness: awake, oriented to person, oriented to place and oriented to time HEENT normocephalic and moist oral mucous membranes Eyes PERRL, EOMs intact bilaterally and conjunctivae normal Neck nuchal rigidity, supple, no JVD, thyroid normal and no carotid bruits General: trachea midline Resp normal respiratory effort, no retractions, no use of accessory muscles and clear to auscultation bilaterally Resp Narrative: Patient has expiratory wheezes scattered over both lung hodges Auscultation: wheezes expiratory wheezes; Negative for rales or rhonchi Cardio regular rate, regular rhythm, S1 normal heart sound, S2 normal heart sound, no murmurs, no rub and no gallops GI normal to inspection, nondistended, normoactive bowel sounds, soft to palpation, non-tender and non-distended Extremity no clubbing, cyanosis or edema Skin no rashes or lesions noted General Skin Exam: no breakdown Neuro oriented x3, CN's II-XII intact bilaterally, no focal motor deficits and no sensory deficits noted Sensorium / Orientation: awake and alert Speech: speech normal Psych thought process normal and affect normal Results Lab / Micro Data Result Diagrams: 02/17/21 01:05 02/17/21 01:05 Labs: Laboratory Results - last 24 hr 02/17/21 01:05: WBC 8.9, RBC 5.79, Hgb 17.3 H, Hct 52.3, MCV 90.3, MCH 29.9, MCHC 33.1, RDW Std Deviation 41.4, RDW Coeff of Terell 12.6, Plt Count 243, MPV 11.9, Immature Gran % (Auto) 0.300, Neut % (Auto) 50.5, Lymph % (Auto) 36.1, Pierce % (Auto) 10.4 H, Eos % (Auto) 2.0, Baso % (Auto) 0.7, Absolute Neuts (auto) 4.5, Absolute Lymphs (auto) 3.21, Nucleated RBC % 0 02/17/21 01:05: PT 11.9, INR 0.9, APTT 27.6 02/17/21 01:05: Sodium 142, Potassium 3.8, Chloride 106, Carbon Dioxide 33.0 H, Anion Gap 3 L, BUN 14, Creatinine 1.18, Estim Creat Clear Calc 74.45, Est GFR (MDRD) Af Amer 82, Est GFR (MDRD) Non-Af 68, BUN/Creatinine Ratio 11.9, Glucose 141 H, Calcium 9.3, Troponin I High Sens 21 02/17/21 03:24: Troponin I High Sens 24 Micro: Microbiology 02/17/21 04:38 Nasal Secretion SARS-CoV-2 Antigen (Rapid) - Final Radiology Impression Chest/Abdomen/Pelvis CTA 02/17/21 01:14 IMPRESSION: Atherosclerotic disease of aorta with no aneurysm or dissection. No significant stenosis. No pulmonary embolus. Possible mild vascular congestion versus vascular crowding with posterior dependent atelectasis. Nonspecific borderline thickening of small bowel wall, cannot exclude mild enteritis in the appropriate clinical context. Otherwise no acute process within the abdomen and pelvis. Electronically Signed: Lizeth Dia MD at 2:11 EST , Service support , Assessment & Plan Assessment/Plan (1) Chest pain: PLAN: 1. Left-sided chest pain-etiology unclear, patient is at high risk for coronary disease, he will be placed in observation status on MedSur, repeat troponin will be obtained at 8:00 this morning, if this is negative, patient could have a nuclear stress test performed this morning if tracer was available. This will have to be a resting stress test to the patient's history of chronic back problems and his probable COPD. #2 noncompliance with medical care-patient does not have a doctor presently and is not taking medications prescribed previously. He was urged to either go back to his family doctor or seek a new one as soon as he can. #3 hyperlipidemia #4 chronic back pain #5 bipolar disorder #6 chronic obstructive pulmonary disease-I will place the patient on aerosol treatments and DuoNeb treatments, he was strongly recommended to get a COVID-19 vaccine as soon as he can Charges/Coding Visit Charges OBSV E&M: 63549 Initial observation care L3
[2021-02-17] MEDS: Ipratropium/Albuterol Sulfate 3 ML AMPUL.NEB INHALATION ×3 (07:32→19:02)
[2021-02-17] MEDS: Budesonide Respules 0.5 MG/2 ML AMPUL.NEB. INHALATION ×2 (07:32→19:02)
[2021-02-17 07:44] LABS: Troponin-I HS 17 pg/mL (3.0-78.0)
--- NOTE | 2021-02-17 10:06 | STRESSREP_ITS ---
Stress Test Report Date: 02-17-2021 Procedure: Pharmacologic stress nuclear imaging study Indications: Chest pain Consent: Per the patient Procedure: The patient underwent pharmacologic (Regadenoson 0.4mg ) evaluation with a peak heart rate of 90 beats per minute (54%predicted maximal heart rate) and a peak blood pressure of 164/92 mmHg. The baseline ECG demonstrated normal sinus rhythm; right bundle branch block pattern. The peak pharmacologic ECG demonstrated no obvious ECG changes. There was an occasional PVC pretest and during infusion. The patient had chest discomfort pretest, during infusion, and recovery. The examination was discontinued secondary to completion of protocol. Impression: 1. Pharmacologic (Regadenoson) evaluation 2. Peak pharmacologic ECG with with continued right bundle branch block pattern with no obvious ECG changes. 3. There was an occasional PVC pretest and during infusion. 4. Nuclear images pending Myocardial perfusion imaging study: Technique: The patient was injected with 14.4 millicuries of technetium 99m Cardiolite and subsequently rest SPECT Cardiolite nuclear imaging was obtained in the horiz ontal long, vertical long, and short axis views. The patient underwent pharmacologic (Regadenoson) evaluation with a peak heart rate of 90 beats per minute (54% percent predicted maximal heart rate) and a peak blood pressure of 164/92 mmHg. The patient was injected with 44.8 millicuries of technetium 99m Cardiolite and subsequently stress SPECT Cardiolite nuclear imaging was obtained in the horizontal long, vertical long, and short axis views. A gated Cardiolite study at peak stress was obtained. Interpretation: Rest and stress SPECT Cardiolite nuclear imaging status post realignment, dimitrios lization, and attenuation correction demonstrate relative uniform tracer uptake and myocardial perfusion appearing within normal limits. There is end systolic thickening and brightening. The gated Cardiolite study demonstrates myocardial thickening and inward wall motion. The reported LVEF is 51%. Impression: 1. Relative uniform tracer uptake and myocardial perfusion appearing within normal limits. 2. The gated Cardiolite study reports an LVEF of 51%. This note was generated with [employer] software. It may contain incorrect words, spelling, and punctuation that were not noted in checking the note before signing.
--- NOTE | 2021-02-17 11:36 | EKG12_ITS ---
Test Reason : CHEST PAIN Blood Pressure : / mmHG Vent. Rate : 064 BPM Atrial Rate : 064 BPM P-R Int : 160 ms QRS Dur : 144 ms QT Int : 434 ms P-R-T Axes : 040 -34 -08 degrees QTc Int : 447 ms Normal sinus rhythm Left axis deviation Right bundle branch block Abnormal ECG When compared with ECG of 17-FEB-2021 05:15, MANUAL COMPARISON REQUIRED, DATA IS UNCONFIRMED Confirmed by NEGIN GALEANO, HUDSON ([id number]), editorial intern BRITANY COUGHLIN ([id number]) on 02/17/2021 2:03:34 PM Referred By: DANGELO Confirmed By:HUDSON KAM MD
[2021-02-17] MEDS: Nitroglycerin (INPATIENT USE) 0.4 MG TAB.SUBL SL ×3 (13:40→13:51)
[2021-02-17] MEDS: amLODIPine 10 MG Tablet PO (13:52)
[2021-02-17] MEDS: Metoprolol Tartrate 25 MG Tablet 12.5 MG PO ×2 (13:53→20:36)
[2021-02-17] MEDS: Morphine 2 MG/ML Syringe IV (13:58)
[2021-02-17] MEDS: 0.9% Saline Lock 10 ML Syringe IV ×2 (13:58→20:36)
--- NOTE | 2021-02-17 14:25 | CASEMGMT ---
According to [facility] website, the following are in-network tertiary facilities: [facility], [facility], [facility], [facility], [facility], [facility], [facility], [facility], [facility], and . [facility]etal RO CM
--- NOTE | 2021-02-17 14:36 | CON.PCM.CA_ITS ---
Assessment & Plan Assessment/Plan (1) Chest pain: PLAN: The above chest pain appears to be constant and atypical. EKG has demonstrated no changes and had his troponin has been normal. In addition he had a normal stress test. I suspect the above is on the basis of uncontrolled hypertension or small vessel disease. Cardiac catheterization today demonstrated normal coronary arteries. His ejection fraction was also noted to be Preserved. (2) Hypertension: PLAN: His blood pressure is uncontrolled and I would recommend compliance with medication as per the hospitalist and primary physician. Thank you for allowing me to participate in the care of your patient. Please d on't hesitate to call if any issues arise. HPI Consult Data Date of Consult: 02/17/21 HPI Narrative HPI Narrative: ROSALINO NORMAN, is a 55 M who presents at [facility] with a chief complaint of left-sided chest pain which he described as pressure like in nature, he described it as if somebody was pushing on his chest wall. Patient was at rest when this pain started, approximately shortly after midnight this morning, the discomfort did not radiate into the jaw or down his arm, patient became diaphoretic with this discomfort, he did not become nauseated. Work-up in the emergency room included a CTA of his chest which showed no evidence of pulmonary emboli or acute process, patient's EKG showed normal sinus rhythm with a bifascicular block-right bundle branch block and left anterior hemiblock. As note was the fact that the patient presented with chest discomfort in 2019 and was asked to be admitted but declined admission. He currently is not followed with any physician. His blood pressure was noted to be markedly elevated this morning. He underwent stress testing which demonstrated no evidence of ischemia but he continues to complain of chest discomfort and so cardiology was consulted for further evaluation and m anagement. At this time of evaluation and examination he is still complaining of chest discomfort and appears to be rather anxious. [facility], [facility] Medical History Anxiety Asthma Bipolar disorder Chest pain COPD (chronic obstructive pulmonary disease) Depression Smoker Substance abuse Medical History no medical history Home Medications tamsulosin 0.4 mg PO DAILY 05/09/19 [History Last Taken Unknown] Allergy/AdvReac Type Severity Reaction Status Date / Time diphenhydramine Allergy Hives Verified 02/17/21 01:05 [From Benadryl] Social History Smoking Status: Current every day smoker tobacco type: cigarettes ROS Constitutional Constitutional: Denies fever(s) or weight loss Eyes Eyes: Reports systems reviewed and no addt'l complaints, except as documented ENT HEENT: Reports systems reviewed and no addt'l complaints, except as documented Cardiovascular Cardiovascular: Reports chest pain at rest, chest pain with activity, dyspnea at rest and dyspnea on exertion; Denies edema, palpitations or paroxysmal nocturnal dyspnea Respiratory/Chest Respiratory/Chest: Denies dyspnea on exertion, productive cough, shortness of breath at rest or shortness of breath with exertion Gastrointestinal Gastrointestinal: Denies change in bowel habits, nausea, vomiting or weight changes Genitourinary Genitourinary: Denies difficulty urinating Musculoskeletal Musculoskeletal: Denies joint stiffness or muscle weakness Integumentary Integumentary: Denies lesions Neurologic Neurologic: Denies dizziness or syncope Psychiatric Psychiatric: Denies anxiety Endocrine Endocrinology: Denies excessive sweating or fatigue Hematologic/Lymphatic Hematologic/Lymphatic: Denies anemia Allergic/Immunologic Allergic/Immunologic: Denies seasonal rhinorrhea Physical Exam Const alert, oriented x3 and no apparent distress General Appearance: cooperative HEENT hearing grossly normal bilaterally Head and Scalp: atraumatic Eyes EOMs intact bilaterally Neck General: normal visual inspection Chest inspection of chest normal and palpation of chest normal Resp normal respiratory effort Auscultation: clear to auscultation bilaterally Cardio regular rate, regular rhythm, S1 normal heart sound and S2 normal heart sound Jugular Venous Distention: JVD GI normal to inspection, nondistended, normoactive bowel sounds Extremity normal capillary refill and no pedal edema Peripheral Pulses: Yes pulses 2+ throughout and femoral pulses present Skin no rashes or lesions noted Neuro oriented x3 and CN's II-XII intact bilaterally Psych Appearance: grossly normal and appropriate Risk Stratification Risk Stratification Applicable: Yes Age >/= 65: No >/= 3 CAD Risk Factors (HTN, HLD, DM, family hx of CAD, or current smoker): Yes Aspirin Use in the Past 7 Days: No Severe Angina (>/= episodes in 24 hours): Yes EKG ST Changes >/= 0.5mm: No Positive Cardiac Marker: No SAMMY Risk Stratification Score: 2 SAMMY % Risk: 8% Risk Objective Data Vital Signs: Vital Signs Temp Pulse Resp BP Pulse Ox 98 F 68 16 143/88 H 92 02/17/21 13:26 02/17/21 13:58 02/17/21 13:58 02/17/21 13:58 02/17/21 13:58 Oxygen Flow Rate (L/min) 2 Oxygen Delivery Method Nasal Cannula Weight: 241 lb 13.553 oz Body Mass Index (BMI) 33.7 Intake & Output: Intake and Output for Last 24 Hours 02/15/21 02/16/21 02/17/21 23:59 23:59 23:59 Intake Total 1240 / 1240 Output Total 350 / 350 Balance 890 / 890 Lab / Micro Data Result Diagrams: 02/17/21 01:05 02/17/21 01:05 Labs: Laboratory Results - last 24 hr 02/17/21 01:05: WBC 8.9, RBC 5.79, Hgb 17.3 H, Hct 52.3, MCV 90.3, MCH 29.9, MCHC 33.1, RDW Std Deviation 41.4, RDW Coeff of Terell 12.6, Plt Count 243, MPV 11.9, Immature Gran % (Auto) 0.300, Neut % (Auto) 50.5, Lymph % (Auto) 36.1, Sequoyah % (Auto) 10.4 H, Eos % (Auto) 2.0, Baso % (Auto) 0.7, Absolute Neuts (auto) 4.5, Absolute Lymphs (auto) 3.21, Nucleated RBC % 0 02/17/21 01:05: PT 11.9, INR 0.9, APTT 27.6 02/17/21 01:05: Sodium 142, Potassium 3.8, Chloride 106, Carbon Dioxide 33.0 H, Anion Gap 3 L, BUN 14, Creatinine 1.18, Estim Creat Clear Calc 74.45, Est GFR (MDRD) Af Amer 82, Est GFR (MDRD) Non-Af 68, BUN/Creatinine Ratio 11.9, Glucose 141 H, Calcium 9.3, Troponin I High Sens 21 02/17/21 03:24: Troponin I High Sens 24 02/17/21 06:58: Troponin I High Sens 17 Micro: Microbiology 02/17/21 04:38 Nasal Secretion SARS-CoV-2 Antigen (Rapid) - Final Cardiology Labs/Tests 02/17/21 01:05: WBC 8.9, RBC 5.79, Hgb 17.3 H, Hct 52.3, MCV 90.3, MCH 29.9, MCHC 33.1, Plt Count 243, MPV 11.9, Immature Gran % (Auto) 0.300, Neut % (Auto) 50.5, Lymph % (Auto) 36.1, Sequoyah % (Auto) 10.4 H, Eos % (Auto) 2.0, Baso % (Auto) 0.7, Absolute Neuts (auto) 4.5, Nucleated RBC % 0 02/17/21 01:05: PT 11.9, INR 0.9, APTT 27.6 02/17/21 01:05: Sodium 142, Potassium 3.8, Chloride 106, Carbon Dioxide 33.0 H, Anion Gap 3 L, BUN 14, Creatinine 1.18, Est GFR (MDRD) Af Amer 82, Est GFR (MDR D) Non-Af 68, BUN/Creatinine Ratio 11.9, Glucose 141 H, Calcium 9.3 Rhythm: EKG: ECHO: Stress Test: Cardiac Cath: PCI: CT Surgery: Holter monitor: EPS: PPM: CXR: Chest CT Scan: Radiography Diagnostic Testing: Radiology Impression Chest/Abdomen/Pelvis CTA 02/17/21 01:14 IMPRESSION: Atherosclerotic disease of aorta with no aneurysm or dissection. No significant stenosis. No pulmonary embolus. Possible mild vascular congestion versus vascular crowding with posterior dependent atelectasis. Nonspecific borderline thickening of small bowel wall, cannot exclude mild enteritis in the appropriate clinical context. Otherwise no acute process within the abdomen and pelvis. Electronically Signed: Lizeth Dia MD at 2:11 EST , Service support ,
--- NOTE | 2021-02-17 15:25 | PN.HOSP_ITS ---
Subjective Subjective Patient seen and examined. He was admitted with a complaint of chest pain, and is being managed for chest pain to r/o ACS. He still complains of chest pain, and says he feels like someone is sitting on his chest. He denies lightheadedness or dizziness. Review of systems is otherwise negative. Objective Data Objective Data Vital Signs: Vital Signs Temp Pulse Resp BP Pulse Ox 98 F 68 16 143/88 H 92 02/17/21 13:26 02/17/21 13:58 02/17/21 13:58 02/17/21 13:58 02/17/21 13:58 Oxygen Flow Rate (L/min) 2 Oxygen Delivery Method Nasal Cannula Weight: 241 lb 13.553 oz Body Mass Index (BMI) 33.7 Intake & Output: Intake and Output for Last 24 Hours 02/15/21 02/16/21 02/17/21 23:59 23:59 23:59 Intake Total 1240 / 1240 Output Total 350 / 350 Balance 890 / 890 Lab / Micro Data Result Diagrams: 02/17/21 01:05 02/17/21 01:05 Labs: Laboratory Results - last 24 hr 02/17/21 01:05: WBC 8.9, RBC 5.79, Hgb 17.3 H, Hct 52.3, MCV 90.3, MCH 29.9, MCHC 33.1, RDW Std Deviation 41.4, RDW Coeff of Terell 12.6, Plt Count 243, MPV 11.9, Immature Gran % (Auto) 0.300, Neut % (Auto) 50.5, Lymph % (Auto) 36.1, [place] % (Auto) 10.4 H, Eos % (Auto) 2.0, Baso % (Auto) 0.7, Absolute Neuts (auto) 4.5, Absolute Lymphs (auto) 3.21, Nucleated RBC % 0 02/17/21 01:05: PT 11.9, INR 0.9, APTT 27.6 02/17/21 01:05: Sodium 142, Potassium 3.8, Chloride 106, Carbon Dioxide 33.0 H, Anion Gap 3 L, BUN 14, Creatinine 1.18, Estim Creat Clear Calc 74.45, Est GFR (MDRD) Af Amer 82, Est GFR (MDRD) Non-Af 68, BUN/Creatinine Ratio 11.9, Glucose 141 H, Calcium 9.3, Troponin I High Sens 21 02/17/21 03:24: Troponin I High Sens 24 02/17/21 06:58: Troponin I High Sens 17 Micro: Microbiology 02/17/21 04:38 Nasal Secretion SARS-CoV-2 Antigen (Rapid) - Final Radiography Diagnostic Testing: Radiology Impression Chest/Abdomen/Pelvis CTA 02/17/21 01:14 IMPRESSION: Atherosclerotic disease of aorta with no aneurysm or dissection. No significant stenosis. No pulmonary embolus. Possible mild vascular congestion versus vascular crowding with posterior dependent atelectasis. Nonspecific borderline thickening of small bowel wall, cannot exclude mild enteritis in the appropriate clinical context. Otherwise no acute process within the abdomen and pelvis. Electronically Signed: Lizeth Dia MD at 2:11 EST , Service support , Physical Exam Const alert and oriented x3 Constitutional Narrative: looks uncomfortable Exam Limitations: no limitations HEENT head/scalp atraumatic and moist oral mucous membranes Head and Scalp: normocephalic Eyes PERRL, EOMs intact bilaterally and conjunctivae normal Neck no lymphadenopathy Resp normal respiratory effort, no retractions, no use of accessory muscles and clear to auscultation bilaterally Cardio regular rate, regular rhythm, S1 normal heart sound, S2 normal heart sound and no murmurs GI normal to inspection, nondistended, normoactive bowel sounds, soft to palpation, non-tender and non-distended Extremity normal to inspection, full ROM and no clubbing, cyanosis or edema Peripheral Pulses: Yes pulses 2+ throughout Skin no rashes or lesions noted Neuro oriented x3, CN's II-XII intact bilaterally and moves all extremities Sensorium / Orientation: awake and alert Psych affect normal Assessment & Plan Assessment/Plan (1) Hypertension: (2) High cholesterol: (3) Chest pain: PLAN: #Chest pain * high sensitivity troponin x 3 were negative. * CTA was negative for PE * stress test done today was negative. Cardiology consulted in light of persistent chest pain. * He had cardiac cath today which showed normal coronaries * BP is elevated, and he is not on any meds. This is likely the cause of persistent chest pain in light of negative stress test and cardiac cath * Started on p.o. amlodipine and metoprolol * #Hypertension * Has not been on any medication. Start on amlodipine and metoprolol. Counseled on compliance * IV hydralazine as needed * #History of kidney stones: On Flomax DVT prophylaxis: SCDs Disposition: * We will keep overnight to monitor blood pressure and also monitor for chest pain since he still having chest pain. * Anticipate discharge tomorrow Charges/Coding Visit Charges OBSV E&M: 33809 Subsequent observation care L2
--- NOTE | 2021-02-17 17:30 | CL.D_ITS ---
Patient Name: ROSALINO NORMAN Study Date: 02/17/2021 Performing: Sergio Chi MD Ht: 71 inches 180 cm : 1965 Wt: 242.8 lbs 110 kg Age: 55 Gender: male BSA: 2.29 PROCEDURE(S) PERFORMED DC01-([id number])LHC/COR/LV CLINICAL PROFILE AND INDICATIONS Indications: Suspected CAD Heart Failure: None Stress/Imaging Date: 02/17/2021tress Test with SPECT MPI: Negative CAD Presentations: Symptom unlikely to be ischemic. CONCLUSIONS Normal coronary arteries Normal LV size, wall motion,and systolic function RECOMMENDATIONS Medical therapy Treatment Hypertension DESCRIPTION OF PROCEDURE The patient arrived to the procedure lab. The risks and benefits of the procedure as well as a full d escription of our services here and current unavailability of surgical backup were fully explained to the patient and/or their significant other prior to the catheterization. The Timeout was completed, verifying the correct patient and procedure. The patient's procedural site was prepped and draped in the usual fashion. Local anesthetic was given subcutaneously to right radial region with Lidocaine 2% . Using a modified Seldinger technique, arterial access was obtained via the right radial artery, a 6 Fr sheath was inserted. Left Coronary Artery selective angiography was performed in multiple views u sing a 5 Fr. 4.0 [place] catheter. Right Coronary Artery selective angiography was then performed in mu ltiple views using a 5 Fr. 4.0 [place] catheter. Left Ventriculography was performed in WEATHERS projection using a 5 Fr. Pig[place] catheter. LV to AO pullback pressures were then recorded.The arterial sheath was pulled and a TR Band was applied for hemostasis CORONARY ANGIOGRAPHY DOMINANCE: Right Dominant LEFT HEART ASSESSMENT Left Ventricular Ejection Fraction: by LV Gram 60 % Normal LV wall motion Normal Left Ventricular systolic function Normal Left Ventricular systolic function LEFT MAIN: Angiographically normal, Angiographically normal LEFT ANTERIOR DESCENDING ARTERY: Angiographically normal CIRCUMFLEX ARTERY: Angiographically normal RIGHT CORONARY ARTERY: Angiographically normal COMPLICATIONS No Complications PROCEDURE MEDICATIONS Fentanyl 50 mcg IV Versed 1 mg IV Versed 1 mg IV Oxygen: 2 L/min via nasal cannula Heparin given IA 02/17/2021 14:54:46 Verapamil 2.5mg, Ntg 100mcgs, 3000 units of Heparin given IA 02/17/2021 14:54:46 SUMMARY OF HEMODYNAMIC DATA Time AIR REST ECG 14:37:00 Art 192/87 (115) 14:50:08 AO 132/87 (108) SA 14:56:08 LV 140/20, 29 15:02:17 LV 139/18, 35 15:02:24 LV 137/17, 30 15:03:08 LV 138/18, 36 15:03:15 LVp 148/22, 32 15:03:20 AOp 0/92 (109) 15:03:25 Signed By Sergio Chi MD On 02/17/2021 17:29:41 Sergio Chi MD
[2021-02-17] MEDS: 0.9% Normal Saline 1,000 ML 60 ML IV (21:03)
[2021-02-18] VITALS (11 sets, daily range): BP systolic 155–176; BP diastolic 85–90; PULSE 63–78; RESP 14–26; TEMP 36.6–36.7; O2SAT 86–96
[2021-02-18] MEDS: 0.9% Saline Lock 10 ML Syringe IV (06:26)
[2021-02-18 06:59] LABS: Absolute Lymphocyte Count 2.16 X10^3/uL (0.83-4.51); Absolute Neutrophil Count 4.6 X10^3/uL (2.0-7.7); Basophil# 0.04 X10^3/uL; Basophil% 0.5 % (0-1); Eosinophil# 0.17 X10^3/uL; Eosinophils% 2.2 % (0-5); Hemoglobin 16.6 g/dL (13.0-16.5); Lymphocyte # 2.16 X10^3/ul (0.83-4.51); Lymphocyte % 27.9 % (19-41); Mean Corp Hgb Conc 33.2 g/dL (32-36); Mean Corpuscular Hgb 30.5 pg (27.0-32.0); Mean Corpuscular Volume 91.7 fL (80-94); Mean Platelet Vol. 12.6 fl (6.2-12.0); Monocyte# 0.79 X10^3/uL; Monocyte% 10.2 % (0-10); NRBC Flagged by Analyzer 0 % (0-5); Neutrophil # 4.55 X10^3/uL (2.7-7.7); Neutrophil % 58.9 % (47-70); Platelet Count 208 K/mm3 (150-450); RBC Distribution Width CV 12.8 % (11.6-14.6); RBC Distribution Width SD 42.6 fl (35.1-43.9); Red Blood Count 5.45 M/mm3 (4.6-6.2); White Blood Count 7.7 K/mm3 (4.4-11.0)
[2021-02-18] MEDS: Budesonide Respules 0.5 MG/2 ML AMPUL.NEB. INHALATION (07:07)
[2021-02-18] MEDS: Ipratropium/Albuterol Sulfate 3 ML AMPUL.NEB INHALATION ×2 (07:07→10:41)
[2021-02-18 07:17] LABS: Anion Gap 8 (5-15); BUN 11 mg/dL (7-18); BUN/Creat Ratio 14.6 RATIO (10-20); Calcium,Total 8.2 mg/dL (8.5-10.1); Chloride 103 mmol/L (98-107); Creatinine, Serum 0.75 mg/dL (0.70-1.30); EST Glomerular Filtration Rate 114 mL/min (>60); Est Glom Filt Rate - Afr Amer 138 mL/min (>60); Estimated Creatinine Clearance 117.13 ml/min; Glucose 133 mg/dL (74-106); Potassium 3.6 mmol/L (3.5-5.1); Sodium Level 138 mmol/L (136-145)
[2021-02-18 08:58] LABS: Cholesterol 112 mg/dL (200); High Density Lipoprotein 36 mg/dL; Triglycerides 113 mg/dL; Very Low Density Lipoprotein 23 mg/dL (5-40)
[2021-02-18] MEDS: Metoprolol Tartrate 25 MG Tablet 12.5 MG PO (08:58)
[2021-02-18] MEDS: amLODIPine 10 MG Tablet PO (08:59)
[2021-02-18] MEDS: hydrALAZINE 20 MG/ML Vial 10 MG IV (09:04)
--- NOTE | 2021-02-18 11:42 | DS.PCM_ITS ---
Providers Date of Admission: 02/17/21 Primary Care Physician: No Primary Care Phys Consultations 02/17/21 13:36 Consult: Cardiology Routine Consulting Provider: Sergio Chi Reason for Consult: intractable chest pain EMERGENT Consult: No MD Notified: Yes Date Notified: 02/17/21 Time Notified: 13:36 Method of Notification: Text Reason For Visit: CHEST PAIN Diagnosis Discharge Diagnosis (1) Hypertension: Status: Deleted Code(s): I10 - Essential (primary) hypertension (2) High cholesterol: Status: Deleted Code(s): E78.00 - Pure hypercholesterolemia, unspecified (3) Chest pain: Status: Acute Code(s): R07.9 - Chest pain, unspecified Medications at Discharge Home Medications tamsulosin 0.4 mg PO DAILY 05/09/19 amlodipine 10 mg PO DAILY #30 tab 02/18/21 metoprolol tartrate 25 mg PO DAILY #30 tab 02/18/21 Hospital Course Operations None Procedures Cardiac catheterization Summary of Care Provided Minutes Spent on Discharge: 40 Hospital Course: Patient is a 55-year-old male with a past medical history as outlined who was admitted through the ED on 02/17/2021 with a complaint of chest pain which was left-sided and he described it as pressure-like. He described as someone sitting on his chest. Pain was nonradiating he had associated diaphoresis though he denied nausea. CTA of his chest was negative for PE and EKG showed normal sinus rhythm with a bifascicular block. He was admitted to be managed for chest pain rule out ACS. Troponins x3 were negative and he had stress test which was negative for any evidence of ischemia. Patient however continued having persistent chest pain so cardiology was consulted and patient had cardiac cath which showed normal coronaries. Of note, patient was noted to have markedly elevated blood pressure was not on any blood pressure medications. Chest pain was therefore thought to be a sequelae of his elevated blood pressure so he was started on p.o. amlodipine and p.o. metoprolol. He was discharged home on 02/18/2021 and is to follow-up with his primary care doctor and cardiology in 1 to 2 weeks. He was referred to [facility] to establish PCP care. Patient seen and examined prior to discharge. He had no active complaints and felt well. Review of systems otherwise negative. Labs and vitals reviewed. Medication reviewed and reconciled. Physical Exam Const alert, oriented x3 and healthy appearing Constitutional Narrative: looks uncomfortable General Appearance: cooperative, comfortable, well kempt and well developed Orientation / Consciousness: awake, oriented to person, oriented to place and oriented to time Exam Limitations: no limitations HEENT normocephalic, head/scalp atraumatic and moist oral mucous membranes Eyes PERRL, EOMs intact bilaterally and conjunctivae normal Neck nuchal rigidity, no lymphadenopathy, supple, no JVD, thyroid normal and no carotid bruits General: trachea midline Resp normal respiratory effort, no retractions, no use of accessory muscles and clear to auscultation bilaterally Auscultation: Negative for rales or rhonchi Cardio regular rate, regular rhythm, S1 normal heart sound, S2 normal heart sound, no murmurs, no rub and no gallops GI normal to inspection, nondistended, normoactive bowel sounds, soft to palpation, non-tender and non-distended Extremity normal to inspection, full ROM and no clubbing, cyanosis or edema Skin no rashes or lesions noted General Skin Exam: no breakdown Neuro oriented x3, CN's II-XII intact bilaterally, moves all extremities, no focal motor deficits and no sensory deficits noted Sensorium / Orientation: awake and alert Speech: speech normal Psych thought process normal and affect normal Weight / BMI Weight Weight: 241 lb 13.553 oz Body Mass Index (BMI) 33.7 ABG / Lab / Microbiology Data Result Diagrams: 02/18/21 05:25 02/18/21 05:25 Laboratory: Laboratory Results - last 24 hr 02/18/21 05:25: WBC 7.7, RBC 5.45, Hgb 16.6 H, Hct 50.0, MCV 91.7, MCH 30.5, MCHC 33.2, RDW Std Deviation 42.6, RDW Coeff of Terell 12.8, Plt Count 208, MPV 12.6 H, Immature Gran % (Auto) 0.300, Neut % (Auto) 58.9, Lymph % (Auto) 27.9, [place] % (Auto) 10.2 H, Eos % (Auto) 2.2, Baso % (Auto) 0.5, Absolute Neuts (auto) 4.6, Absolute Lymphs (auto) 2.16, Nucleated RBC % 0 02/18/21 05:25: Sodium 138, Potassium 3.6, Chloride 103, Carbon Dioxide 27.0, Anion Gap 8, BUN 11, Creatinine 0.75, Estim Creat Clear Calc 117.13, Est GFR (MDRD) Af Amer 138, Est GFR (MDRD) Non-Af 114, BUN/Creatinine Ratio 14.6, Glucose 133 H, Calcium 8.2 L 02/18/21 05:25: Triglycerides 113, Cholesterol 112, LDL Cholesterol 53, VLDL Cholesterol 23, HDL Cholesterol 36 L Microbiology: Microbiology 02/17/21 04:38 Nasal Secretion SARS-CoV-2 Antigen (Rapid) - Final D/C Instructions Discharge Diet: Low fat / Low cholesterol and 2000 mg Sodium Diet Discharge Activity: Return to Normal Activity Weight Bearing Status: Weight bearing as tolerated Call your doctor if you observe: Fever of 101 or Higher, Shortness of breath, Dizziness, Swelling in the ankles, Chest pain and Increased palpitations (irregular heartbeat) Meaningful Use Info Meaningful Use Diagnoses (Choose all that apply): None applicable Discharge Plan Admission Admit Date/Time: 02/17/21 05:31 Primary Reason for Your Visit: chest pain Attending Provider: Jo Steiner Primary Care Provider: Care Physician,Leeann Primary Consulting Providers: Sergio Chi Discharge Orders/Prescriptions Prescriptions: New amlodipine 10 mg Tablet 10 mg PO DAILY Qty: 30 RF: 1 metoprolol tartrate 25 mg tablet 25 mg PO DAILY Qty: 30 RF: 1 Continued tamsulosin 0.4 MG capsule 0.4 mg PO DAILY RF: 0 Referrals / Follow Up: Sergio Chi MD [STAFF PHYSICIAN] - Within 1 Month Joshua Castillo MD [STAFF PHYSICIAN] - Within 2 Weeks (call to establish PCP care) Care Physician,No Primary [Primary Care Provider] - Disposition Disposition (needs filled in before D/C Order can be placed): Home, Self Care Charges/Coding Visit Charges Inpatient E&M: 58818 Disch Hosp
== END 2021-02-18 11:50 | disposition home or self-care (01) ==
LOC: ED 04:28 → PCU 06:23
PROVIDERS: Admitting Provider Internal Medicine; Emergency Provider Emergency Medicine; Visit Provider Student in an Organized Health Care Education/Training Program
DX: R07.89 Other chest pain (principal); I45.2 Bifascicular block; I10 Essential (primary) hypertension; E78.5 Hyperlipidemia, unspecified; J44.9 Chronic obstructive pulmonary disease, unspecified; F17.210 Nicotine dependence, cigarettes, uncomplicated; Z79.899 Other long term (current) drug therapy; Z82.49 Family history of ischemic heart disease and other diseases of the circulatory system; Z28.3 Underimmunization status; Z91.19 Patient's noncompliance with other medical treatment and regimen
CPT/HCPCS: 36415; 71275; 74174; 78452; 80048; 80061; 84484; 85025; 85610; 85730; 87426; 93005; 93017; 93458; 94640; 96361; 96374; 96375; 96376; 99152; 99153; 99218; 99285; 99406; A9500; J7030; J7040; Q9967; A4216; C1769; C1894; G0378; J2405; J2785

== ENCOUNTER 2021-03-06 18:15 | Emergency (ER) | payer MEDICAID, SELFPAY ==
[2021-03-06] VITALS (8 sets, daily range): BP systolic 157; BP diastolic 88; PULSE 95–100; RESP 16–20; TEMP 37.1; O2SAT 85–94; BMI 34.4
--- NOTE | 2021-03-06 18:37 | EKG12_ITS ---
Test Reason : SOB Blood Pressure : / mmHG Vent. Rate : 104 BPM Atrial Rate : 104 BPM P-R Int : 154 ms QRS Dur : 144 ms QT Int : 384 ms P-R-T Axes : 062 -43 -11 degrees QTc Int : 504 ms Sinus tachycardia with occasional Premature ventricular complexes Left axis deviation Right bundle branch block Abnormal ECG Confirmed by BELEN GALEANO, DANNI ([id number]), editor index TONO ISSA ([id number]) on 03/10/2021 10:07:25 AM Referred By: RMEBERTO/FRANCIE Confirmed By:DANNI GLOVER MD
[2021-03-06] MEDS: dexAMETHasone 4 MG/ML Vial 6 MG IV (18:47)
[2021-03-06] MEDS: Ipratropium/Albuterol Sulfate 3 ML AMPUL.NEB INHALATION (18:52)
--- NOTE | 2021-03-06 18:54 | EDS_ITS ---
HPI History of Present Illness Chief Complaint: Shortness of Breath Informant: patient Narrative Narrative: Patient comes in with Covid symptoms. He states about 4 days ago he started getting congestion. He has myalgias fever cough without sputum production. No hemoptysis. He has some diarrhea but no nausea vomiting. His appetite is down but he is able to eat and drink. Taste and smell are gone. He is not immunized. Patient also has been wheezing more. He does have a history of COPD and is a smoker. He uses inhalers. 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 He was here about 2 weeks ago for chest pain. He is not having chest pain now. He had an extensive evaluation including a heart catheterization at that time. He also had a CT scan of the chest. He has never had a PE or DVT. He has no leg pain or swelling. [facility] Medical History Anxiety Asthma Bipolar disorder Chest pain COPD (chronic obstructive pulmonary disease) Depression Essential hypertension Hyperlipidemia Smoker Substance abuse Home Medications tamsulosin 0.4 mg PO DAILY 05/09/19 [History Last Taken Unknown] amlodipine 10 mg PO DAILY #30 tab 02/18/21 [Rx Last Taken Unknown] metoprolol tartrate 25 mg PO DAILY #30 tab 02/18/21 [Rx Last Taken Unknown] Allergy/AdvReac Type Severity Reaction Status Date / Time diphenhydramine Allergy Hives Verified 03/06/21 18:20 [From Benadryl] Surgical History History of left heart catheterization (02/17/21) Social History Smoking Status: Current every day smoker tobacco type: cigarettes ROS ROS ED Constitutional Constitutional ED: Reports chills, fever(s) and sweats Eyes Eyes: Denies blurry vision ENT ENT ED: Reports rhinorrhea and sore throat Cardiovascular Cardiovascular: Denies chest pain or palpitations Respiratory/Chest Respiratory/Chest: Reports cough and dyspnea; Denies dyspnea on exertion or sputum Gastrointestinal Gastrointestinal: Reports diarrhea; Denies abdominal pain, nausea or vomiting Genitourinary Genitourinary ED: Denies dysuria Musculoskeletal Musculoskeletal: Reports myalgias Integumentary Denies rash Neurologic Neurologic: Reports headache(s); Denies paresthesias or weakness Endocrine Endocrinology: Denies polydipsia or polyuria Hematologic/Lymphatic Hematologic/Lymphatic: Denies easy bleeding or easy bruising Allergic/Immunologic Allergic/Immunologic ED: Denies urticaria EXAM Physical Exam Const Vital Signs: 03/06/21 18:16 03/06/21 18:20 03/06/21 18:21 Temperature 98.8 F Temperature Source Oral Pulse Rate 95 Respiratory Rate 16 Respiratory Effort Short of Breath Labored Blood Pressure 157/88 H Blood Pressure Mean 111 Pulse Ox 88 89 Oxygen Delivery Method Room Air Nasal Cannula Nasal Cannula Oxygen Flow Rate (L/min) 2 2 03/06/21 19:00 03/06/21 19:27 03/06/21 19:30 Temperature Temperature Source Pulse Rate 100 Respiratory Rate 20 H Respiratory Effort Blood Pressure Blood Pressure Mean Pulse Ox 92 94 Oxygen Delivery Method Non-Rebreather Nasal Cannula Oxygen Flow Rate (L/min) 6 5 03/06/21 19:39 Temperature Temperature Source Pulse Rate Respiratory Rate Respiratory Effort Blood Pressure Blood Pressure Mean Pulse Ox 93 Oxygen Delivery Method Nasal Cannula Oxygen Flow Rate (L/min) 5 Patient looks a bit ill. He was hypoxic on room air. He is actually on 5 L now. I guess he was still hypoxic on 2 L at 89% just sitting in bed. Positive well nourished and well developed General Appearance ED: well developed HEENT atraumatic Eyes General Eye ED: Negative for scleral icterus Neck no JVD Resp normal respiratory effort and No clear to auscultation bilaterally Effort and Inspection: Negative for pain with movement Auscultation: rhonchi, wheezes and diminished lung sounds; Negative for rales Cardio regular rate and regular rhythm GI non-tender Palpation: soft Back/Spine no CVA tenderness Extremity General Extremety ED: Negative for tenderness Neuro oriented x3 Sensorium / Orientation: alert Psych mental status grossly normal Skin Lesions: no lesions Rashes: no rashes MDM MDM MDM Narrative Medical decision making narrative: Patient's white count is normal. Hemoglobin is mildly high. Electrolytes show no marked abnormalities. Creatinine is normal. Glucose is elevated a bit. Troponin is negative. BNP is normal. Lactate is normal. D-dimer is high. His Covid is positive. This patient was walked on the edge of bed. On room air he went down to 80%. Significantly low level. He is maintained on 2 to 4 L in bed though. His saturations are normal there. CAT scan was ordered. He did have a CT about 2-1/2 weeks ago. However, he has new symptoms with significant hypoxia. CT went to get him. He had left. We cannot find them anywhere. We looked in rooms and bathrooms and down hallways. We called his girlfriend. We are suspicious that he is with her. We are trying to sort out if he still has his IV in. We are sending police and EMS to his house because I have significant concerns about this patient's safety. I think this patient does need to be admitted. I actually already called the hospitalist even prior to the CT. Lab Data Attestation: I reviewed the patient's lab results. Labs: Laboratory Results - last 24 hr 03/06/21 03/06/21 03/06/21 18:30 18:30 18:30 WBC 6.5 RBC 5.56 Hgb 16.9 H Hct 48.4 MCV 87.1 MCH 30.4 MCHC 34.9 RDW Std Deviation 40.2 RDW Coeff of Terell 12.6 Plt Count 205 MPV 11.7 Immature Gran % (Auto) 0.300 Neut % (Auto) 74.7 H Lymph % (Auto) 17.8 L [place] % (Auto) 7.0 Eos % (Auto) 0.0 Baso % (Auto) 0.2 Absolute Neuts (auto) 4.8 Absolute Lymphs (auto) 1.15 Nucleated RBC % 0 D-Dimer Quant (PE/DVT) Sodium 136 Potassium 4.1 Chloride 101 Carbon Dioxide 30.0 Anion Gap 5 BUN 11 Creatinine 0.95 Estim Creat Clear Calc 92.47 Est GFR (MDRD) Af Amer 106 Est GFR (MDRD) Non-Af 87 BUN/Creatinine Ratio 11.6 Glucose 143 H Lactic Acid Calcium 8.7 Troponin I High Sens 21 B-Natriuretic Peptide 32.3 03/06/21 03/06/21 18:30 18:50 WBC RBC Hgb Hct MCV MCH MCHC RDW Std Deviation RDW Coeff of Terell Plt Count MPV Immature Gran % (Auto) Neut % (Auto) Lymph % (Auto) [place] % (Auto) Eos % (Auto) Baso % (Auto) Absolute Neuts (auto) Absolute Lymphs (auto) Nucleated RBC % D-Dimer Quant (PE/DVT) 0.89 H* Sodium Potassium Chloride Carbon Dioxide Anion Gap BUN Creatinine Estim Creat Clear Calc Est GFR (MDRD) Af Amer Est GFR (MDRD) Non-Af BUN/Creatinine Ratio Glucose Lactic Acid 1.5 Calcium Troponin I High Sens B-Natriuretic Peptide EKG Initial EKG: Comments: EKG done for dyspnea read by me shows sinus rhythm with tachycardic rate at 104. He also has right bundle branch block pattern. Nonspecific ST and T wave change but no sign of infarct or ischemia. This is somewhat similar to 17 February 2021. Discharge Plan Triage Chief Complaint: Shortness of Breath ED Provider: Eran Erickson Dx/Rx/DC Orders Clinical Impression: 2019 novel coronavirus-infected pneumonia (NCIP), Hypoxia, Eloped from emergency department Prescriptions: No Action tamsulosin 0.4 MG capsule 0.4 mg PO DAILY RF: 0 amlodipine 10 mg Tablet 10 mg PO DAILY Qty: 30 RF: 1 metoprolol tartrate 25 mg tablet 25 mg PO DAILY Qty: 30 RF: 1 Primary Care Provider: Care Physician,No Primary Referrals: Care Physician,No Primary [Primary Care Provider] - Disposition Disposition: Elopement
[2021-03-06 18:59] LABS: Absolute Lymphocyte Count 1.15 X10^3/uL (0.83-4.51); Absolute Neutrophil Count 4.8 X10^3/uL (2.0-7.7); Basophil# 0.01 X10^3/uL; Basophil% 0.2 % (0-1); Hematocrit 48.4 % (40-54); Hemoglobin 16.9 g/dL (13.0-16.5); Lymphocyte # 1.15 X10^3/ul (0.83-4.51); Lymphocyte % 17.8 % (19-41); Mean Corp Hgb Conc 34.9 g/dL (32-36); Mean Corpuscular Hgb 30.4 pg (27.0-32.0); Mean Corpuscular Volume 87.1 fL (80-94); Mean Platelet Vol. 11.7 fl (6.2-12.0); Monocyte# 0.45 X10^3/uL; NRBC Flagged by Analyzer 0 % (0-5); Neutrophil # 4.82 X10^3/uL (2.7-7.7); Neutrophil % 74.7 % (47-70); Platelet Count 205 K/mm3 (150-450); RBC Distribution Width CV 12.6 % (11.6-14.6); RBC Distribution Width SD 40.2 fl (35.1-43.9); Red Blood Count 5.56 M/mm3 (4.6-6.2); White Blood Count 6.5 K/mm3 (4.4-11.0)
[2021-03-06 19:13] LABS: Anion Gap 5 (5-15); BUN 11 mg/dL (7-18); BUN/Creat Ratio 11.6 RATIO (10-20); Calcium,Total 8.7 mg/dL (8.5-10.1); Chloride 101 mmol/L (98-107); Creatinine, Serum 0.95 mg/dL (0.70-1.30); EST Glomerular Filtration Rate 87 mL/min (>60); Est Glom Filt Rate - Afr Amer 106 mL/min (>60); Estimated Creatinine Clearance 92.47 ml/min; Glucose 143 mg/dL (74-106); Potassium 4.1 mmol/L (3.5-5.1); Sodium Level 136 mmol/L (136-145); Troponin-I HS 21 pg/mL (3.0-78.0)
[2021-03-06 19:27] LABS: D-Dimer Quantitative (DVT/PE) 0.89 FEU/ug/m (0.27-0.49)
[2021-03-06 19:28] LABS: BNP,B-Type NATRIURETIC PEPTIDE 32.3 pg/mL (0-100)
[2021-03-06 19:33] LABS: Lactic Acid 1.5 mmol/L (0.4-1.9)
--- NOTE | 2021-03-06 21:17 | ED.RN ---
personal cellphone called. woman answered. alot of background noise. eventually patient hung up. called patient phone back . woman answered and asked to have [place] come back myrtle. woman starts yelling and saying that we were doing nothing for him and that he left to go to [place]. discussed patient was being admitted and ordered a ct. that he needs to return and confirm iv removal, if not police will be called. she states they are not coming back and it was taken out by patient. i said we need confirmation and he needs to return or police will be coming to confirm the removal of the iv. she then said i am not coming back, we are headed home and the police can come there. Dispatch notified.
== END 2021-03-06 22:20 | disposition left against medical advice (07) ==
PROVIDERS: Emergency Provider Emergency Medicine
DX: U07.1 COVID-19 (principal); J12.82 Pneumonia due to coronavirus disease 2019; R09.02 Hypoxemia; F17.210 Nicotine dependence, cigarettes, uncomplicated; J44.0 Chronic obstructive pulmonary disease with (acute) lower respiratory infection; I45.10 Unspecified right bundle-branch block; I10 Essential (primary) hypertension; F41.9 Anxiety disorder, unspecified; F31.9 Bipolar disorder, unspecified; E78.5 Hyperlipidemia, unspecified; Z79.899 Other long term (current) drug therapy
CPT/HCPCS: 80048; 83605; 83880; 84484; 85025; 85379; 87426; 93005; 94640; 96374; 99285; A4216

== ENCOUNTER 2021-03-09 05:25 | Inpatient (IN) | payer MEDICAID, SELFPAY ==
[2021-03-09] VITALS (26 sets, daily range): BP systolic 137–175; BP diastolic 80–89; PULSE 68–114; RESP 16–32; TEMP 36.3–37.9; O2SAT 60–96; BMI 33.5; BMI 32.1
--- NOTE | 2021-03-09 06:12 | CT_ITS ---
EXAM: CT ANGIOGRAPHY CHEST WITHOUT AND WITH INTRAVENOUS CONTRAST CLINICAL INDICATION: hypoxia hypoxia TECHNIQUE: Helically acquired angiography images were obtained of the chest without and with intravenous contrast. This CT exam was performed using one or more of the following dose reduction techniques: automated exposure control, adjustment of the mA and/or kV according to patient size, and/or use of iterative reconstruction technique. This report was created using [employer] report generation technology. MIP reconstructed images were created and reviewed. CONTRAST: IV 100mL [id number] COMPARISON: CTA chest 02/17/2021. FINDINGS: PULMONARY ARTERIES: Unremarkable. Normal in caliber. No evidence of pulmonary embolism. AORTA: Unremarkable. Normal in caliber. No evidence of dissection. GREAT VESSELS OF AORTIC ARCH: Unremarkable. Normal in caliber. No evidence of dissection. LUNGS AND PLEURAL SPACES: There are bilateral pulmonary infiltrates, with a large groundglass component. Largest areas of infiltration are in the upper lobes bilaterally. Findings are suspicious for COVID-19 pneumonia, but are nonspecific. No mass. No pleural effusion or thickening. HEART: Unremarkable. Heart size is normal. No pericardial effusion. No signs of right heart strain, ratio of right ventricle to left ventricle measures less than 1. MEDIASTINUM: There is a mildly enlarged subcarinal mediastinal lymph node short axis diameter 1.2 cm. There is a right hilar lymph node which reflects a standard 1.3 cm. There is a small hiatal hernia. Esophagus is unremarkable. THYROID: Unremarkable. No thyroid lesions. BONES/JOINTS: There are multilevel degenerative changes in the thoracic spine. No suspicious lytic or blastic abnormality. CT/CTA Chest W/WO Contrast IMPRESSION: 1. No evidence for pulmonary embolism, aortic aneurysm, or aortic dissection. 2. Multifocal pneumonia. Findings are suspicious for, but not specific for, COVID-19 pneumonia. 3. Mild mediastinal and right hilar lymphadenopathy. 4. Small hiatal hernia. Electronically Signed: Brenden Grant MD at 7:44 EST , Service support ,
[2021-03-09 06:30] LABS: Absolute Lymphocyte Count 1.01 X10^3/uL (0.83-4.51); Basophil# 0.03 X10^3/uL; Basophil% 0.3 % (0-1); Hematocrit 50.2 % (40-54); Hemoglobin 16.7 g/dL (13.0-16.5); Lymphocyte # 1.01 X10^3/ul (0.83-4.51); Lymphocyte % 11.5 % (19-41); Mean Corp Hgb Conc 33.3 g/dL (32-36); Mean Corpuscular Hgb 29.4 pg (27.0-32.0); Mean Corpuscular Volume 88.4 fL (80-94); Mean Platelet Vol. 11.9 fl (6.2-12.0); Monocyte# 0.63 X10^3/uL; Monocyte% 7.2 % (0-10); NRBC Flagged by Analyzer 0 % (0-5); Neutrophil # 7.03 X10^3/uL (2.7-7.7); Neutrophil % 80.3 % (47-70); Platelet Count 261 K/mm3 (150-450); RBC Distribution Width CV 12.5 % (11.6-14.6); RBC Distribution Width SD 41.1 fl (35.1-43.9); Red Blood Count 5.68 M/mm3 (4.6-6.2); White Blood Count 8.8 K/mm3 (4.4-11.0)
[2021-03-09] MEDS: Acetaminophen 500 MG Tablet 1000 MG PO (06:35)
[2021-03-09] MEDS: dexAMETHasone 10 MG/ML Vial IV (06:35)
[2021-03-09 06:37] LABS: Anion Gap 7 (5-15); BUN 16 mg/dL (7-18); BUN/Creat Ratio 16.2 RATIO (10-20); Calcium,Total 8.7 mg/dL (8.5-10.1); Chloride 103 mmol/L (98-107); Creatinine, Serum 0.98 mg/dL (0.70-1.30); EST Glomerular Filtration Rate 83 mL/min (>60); Est Glom Filt Rate - Afr Amer 101 mL/min (>60); Estimated Creatinine Clearance 89.64 ml/min; Glucose 173 mg/dL (74-106); Potassium 3.7 mmol/L (3.5-5.1); Sodium Level 139 mmol/L (136-145); Troponin-I HS 20 pg/mL (3.0-78.0)
[2021-03-09] MEDS: 0.9% Normal Saline 1,000 ML 999 ML IV (06:39)
[2021-03-09 06:47] LABS: Prothrombin Time (Protime)PT. 12.8 SECONDS (11.7-14.9)
[2021-03-09 06:48] LABS: Partial Thromboplast Time 28.7 Seconds (24.1-36.2)
--- NOTE | 2021-03-09 08:16 | HP.PCM.HOS_ITS ---
HPI - General HPI Narrative ROSALINO NORMAN, is a 55 M with history of prolonged smoking and possible COPD, never had PFT came to ER for worsening shortness of breath, cough with yellowish-white sputum, wheezing, headache since March 02. Patient came to ER on March 06 and tested Covid rapid antigen positive but the patient left ED absconded The patient has been using inhaler for his COPD. He was referred to premium note interest calculator clerk but has not seen yet because he got very sick. Patient denies history of hypercoagulable disorder or DVT/PE. Twelve-lead EKG done in the ER shows sinus rhythm with right bundle branch block, LAD, nonspecific ST-T changes, QRS 142 ms, QTC 491 ms. Patient was started on 10 L of oxygen went up to 12 L. ABG done, pH 7.44/36/51 on 12 L of oxygen nasal cannula. CTA chest does not show PE/aortic aneurysm or dissection but multifocal viral pneumonia consistent with COVID-19 pneumonia [facility] Medical History Anxiety Asthma Bipolar disorder Chest pain COPD (chronic obstructive pulmonary disease) Depression Essential hypertension Hyperlipidemia Smoker Substance abuse Home Medications tamsulosin 0.4 mg PO DAILY 05/09/19 [History Last Taken Unknown] amlodipine 10 mg PO DAILY #30 tab 02/18/21 [Rx Last Taken Unknown] metoprolol tartrate 25 mg PO DAILY #30 tab 02/18/21 [Rx Last Taken Unknown] Allergy/AdvReac Type Severity Reaction Status Date / Time diphenhydramine Allergy Hives Verified 03/09/21 05:33 [From Benadryl] Surgical History History of left heart catheterization (02/17/21) Social History Smoking Status: Current every day smoker tobacco type: cigarettes ROS ROS Narrative Constitutional: Reports fatigue and weakness. Mild chills/fever, headache, decreased appetite HEENT: Reports systems reviewed and no addt'l complaints, except as documented Respiratory/Chest: Denies chest pain/pressure or tightness. URI symptoms/nasal congestion Gastrointestinal: Denies coffee ground emesis, hematemesis or vomiting Genitourinary: Denies burning urination or new urinary tract symptoms Musculoskeletal: Generalized myalgia. Neurologic: Denies seizure-like activity skin: No ulcer. No rash Endocrinology: Reports systems reviewed and no addt'l complaints, except as documented Hematologic/Lymphatic: Reports systems reviewed and no addt'l complaints, except as documented Rest 12 ROS are negative except as mentioned in HPI Vital Signs Vital Signs Vital Signs: 03/09/21 05:26 03/09/21 05:32 03/09/21 05:33 Temperature 100.2 F H Temperature Source Oral Pulse Rate 114 H Respiratory Rate 28 H Blood Pressure Blood Pressure Mean Pulse Ox 85 89 92 Oxygen Delivery Method Room Air Nasal Cannula Airvo Oxygen Flow Rate (L/min) 5 15 03/09/21 05:34 03/09/21 05:35 03/09/21 06:15 Temperature 100.1 F H Temperature Source Oral Pulse Rate 110 H Respiratory Rate 32 H Blood Pressure 162/89 H Blood Pressure Mean 113 Pulse Ox 96 87 Oxygen Delivery Method Non-Rebreather Non-Rebreather Nasal Cannula Oxygen Flow Rate (L/min) 15 15 6 03/09/21 06:30 03/09/21 06:35 03/09/21 07:59 Temperature 98.8 F 98.2 F Temperature Source Oral Oral Pulse Rate 110 H 104 H Respiratory Rate 20 H 30 H 28 H Blood Pressure 175/87 H 143/86 H Blood Pressure Mean 116 105 Pulse Ox 92 60 90 Oxygen Delivery Method High Flow High Flow High Flow Oxygen Flow Rate (L/min) 9 9 9 03/09/21 08:07 Temperature 98.2 F Temperature Source Oral Pulse Rate 104 H Respiratory Rate 28 H Blood Pressure 143/86 H Blood Pressure Mean 105 Pulse Ox 90 Oxygen Delivery Method High Flow Oxygen Flow Rate (L/min) 9 Weight Weight: 240 lb 8.389 oz Body Mass Index (BMI) 33.5 Physical Exam Narrative General: Alert, Oriented x3, Cooperative moderate respiratory distress, obesity grade 2 BMI 33.5 kg/m? HEENT: Sinus congestion. Atraumatic, PERRLA, EOMI, Normocephalic Oral: Oral mucosa dry. No Gingival or Mucosal Lesions/ Ulcerations Neck: Supple, No JVD, Negative Carotid Bruits Lungs: Air entry diminished in bilateral lung bases. Bilateral coarse crepitation/rhonchi. Severe hypoxia and tachypnea. Cardiovascular: Sinus tachycardia with PVC, Normal S1, Normal S2, No murmurs Abdomen: Bowel Sounds Present, Soft, Non Tender, Non-Distended : No renal angle tenderness. No suprapubic tenderness. Extremities: No edema, Capillary Refill Less than 3 Seconds Skin: No rashes, No breakdown Musculoskeletal: No Tenderness to Palpation of Joints or Extremities ROM full Neurological: Cranial nerves II-XII grossly intact, DTR 2+/4 and Symmetrical. Psych/Mental Status: Normal Affect, Appropriate. Results Lab / Micro Data Result Diagrams: 03/09/21 05:54 03/09/21 05:54 Labs: Laboratory Results - last 24 hr 03/09/21 05:54: PT 12.8, INR 1.0, APTT 28.7 03/09/21 05:54: WBC 8.8, RBC 5.68, Hgb 16.7 H, Hct 50.2, MCV 88.4, MCH 29.4, MCHC 33.3, RDW Std Deviation 41.1, RDW Coeff of Terell 12.5, Plt Count 261, MPV 11.9, Immature Gran % (Auto) 0.700, Neut % (Auto) 80.3 H, Lymph % (Auto) 11.5 L, [place] % (Auto) 7.2, Eos % (Auto) 0.0, Baso % (Auto) 0.3, Absolute Neuts (auto) 7.0, Absolute Lymphs (auto) 1.01, Nucleated RBC % 0 03/09/21 05:54: Sodium 139, Potassium 3.7, Chloride 103, Carbon Dioxide 29.0, Anion Gap 7, BUN 16, Creatinine 0.98, Estim Creat Clear Calc 89.64, Est GFR (MDRD) Af Amer 101, Est GFR (MDRD) Non-Af 83, BUN/Creatinine Ratio 16.2, Glucose 173 H, Calcium 8.7, Troponin I High Sens 20 Radiology Impression Chest CTA 03/09/21 06:12 IMPRESSION: 1. No evidence for pulmonary embolism, aortic aneurysm, or aortic dissection. 2. Multifocal pneumonia. Findings are suspicious for, but not specific for, COVID-19 pneumonia. 3. Mild mediastinal and right hilar lymphadenopathy. 4. Small hiatal hernia. Electronically Signed: Brenden Grant MD at 7:44 EST , Service support , Assessment & Plan Assessment/Plan (1) 2019 novel coronavirus-infected pneumonia (NCIP): (2) Acute respiratory failure with hypoxia: PLAN: 1. Acute severe hypoxic respiratory failure secondary to bilateral COVID-19 pneumonia: The patient is being admitted in PCU stepdown. ABG with increased AA gradient on 12 L of oxygen nasal cannula. AIRVO/high flow O2 ordered. Started on IV dexamethasone and IV remdesivir. Liver profile ordered. ID consult to consider baricitinib. Inflammatory markers D-dimer, ferritin and CRP and pro calcitonin ordered 2. COPD exacerbation most probably due to bilateral COVID-19 pneumonia: Patient on dexamethasone. DuoNeb every 4 hourly, incentive spirometry and Pep and Mucinex bronchopulmonary hygiene. The patient will need outpatient PFT to objectivity define COPD. Patient has history of smoking more than a pack per day since age of 15, at least 40 pack years. Quit 2- 3 days ago. 3. Recent admission for chest pain: Patient was admitted between 02/17?02/18 and had cardiac cath which showed normal coronary arteries. Patient on metoprolol and amlodipine. Twelve-lead EKG shows sinus tachycardia, PVCs, LAD, RBBB. QTc 481 ms. QRS 142 4. Hypertension: Patient on amlodipine and metoprolol continued. 5. History of kidney stone: Patient on Flomax continued VTE prophylaxis: Enoxaparin 30 mg SQ twice daily. Bilateral SCDs. Living will/advanced directive/end of life care: Patient does not have living will or advanced directive. After discussion of benefits/risks procedures involved with full code, DNR CC arrest and DNR CC, the patient opted for full code. Patient does want artificial life support including intubation, tube feed, ventilator and/chest compression, central venous catheter, vasopressor and DC shock if needed Total time spent in [id number] encounter in discussion of advanced directive 16 minutes. Charges/Coding Visit Charges Inpatient E&M: 61540 Init Hosp L3 Procedures Hospitalists Procedures: 50282 Advncd Care Plan 30 Min
--- NOTE | 2021-03-09 09:01 | EX.ED.DYSGE1 ---
HPI History of Present Illness Chief Complaint: Shortness of Breath Narrative Narrative: Patient is a 55-year-old male who is in the hospital about 2 weeks ago secondary concern for hypertensive cardiac disease and underwent a heart cath. He was then seen on March 06 and diagnosed with Covid. He states that over the past few days he has had increased fevers and chills with shortness of breath. Secondary to the worsening shortness of breath EMS was called and reportedly when they arrived his pulse ox was in the 70s on room air. Secondary to this he was placed on a nonrebreather and brought to the hospital for evaluation.. Patient denies any need for supplemental oxygen at baseline [facility] Medical History Anxiety Asthma Bipolar disorder Chest pain COPD (chronic obstructive pulmonary disease) Depression Essential hypertension Hyperlipidemia Smoker Substance abuse Home Medications tamsulosin 0.4 mg PO DAILY 05/09/19 [History Last Taken Unknown] amlodipine 10 mg PO DAILY #30 tab 02/18/21 [Rx Last Taken Unknown] metoprolol tartrate 25 mg PO DAILY #30 tab 02/18/21 [Rx Last Taken Unknown] Allergy/AdvReac Type Severity Reaction Status Date / Time diphenhydramine Allergy Hives Verified 03/09/21 05:33 [From Benadryl] Surgical History History of left heart catheterization (02/17/21) Social History Smoking Status: Current every day smoker tobacco type: cigarettes ROS ROS ED Constitutional Constitutional ED: Reports chills and fever(s) ENT ENT ED: Reports rhinorrhea and sore throat Cardiovascular Cardiovascular: Denies chest pain Respiratory/Chest Respiratory/Chest: Reports cough and dyspnea Gastrointestinal Gastrointestinal: Reports nausea; Denies abdominal pain, diarrhea or vomiting Genitourinary Genitourinary ED: Denies dysuria Musculoskeletal Musculoskeletal: Reports myalgias Integumentary Denies rash Neurologic Neurologic: Reports headache(s) Hematologic/Lymphatic Hematologic/Lymphatic: Denies easy bleeding or easy bruising EXAM Physical Exam Const Vital Signs: 03/09/21 05:26 03/09/21 05:32 03/09/21 05:33 Temperature 100.2 F H Temperature Source Oral Pulse Rate 114 H Respiratory Rate 28 H Blood Pressure Blood Pressure Mean Pulse Ox 85 89 92 Oxygen Delivery Method Room Air Nasal Cannula Airvo Oxygen Flow Rate (L/min) 5 15 03/09/21 05:34 03/09/21 05:35 03/09/21 06:15 Temperature 100.1 F H Temperature Source Oral Pulse Rate 110 H Respiratory Rate 32 H Blood Pressure 162/89 H Blood Pressure Mean 113 Pulse Ox 96 87 Oxygen Delivery Method Non-Rebreather Non-Rebreather Nasal Cannula Oxygen Flow Rate (L/min) 15 15 6 03/09/21 06:30 03/09/21 06:35 03/09/21 07:59 Temperature 98.8 F 98.2 F Temperature Source Oral Oral Pulse Rate 110 H 104 H Respiratory Rate 20 H 30 H 28 H Blood Pressure 175/87 H 143/86 H Blood Pressure Mean 116 105 Pulse Ox 92 60 90 Oxygen Delivery Method High Flow High Flow High Flow Oxygen Flow Rate (L/min) 9 9 9 03/09/21 08:07 Temperature 98.2 F Temperature Source Oral Pulse Rate 104 H Respiratory Rate 28 H Blood Pressure 143/86 H Blood Pressure Mean 105 Pulse Ox 90 Oxygen Delivery Method High Flow Oxygen Flow Rate (L/min) 9 Positive well nourished and well developed General Appearance ED: well developed HEENT Reports dry mucous membranes HEENT Narrative: No tongue or lip swelling no oral lesions no airway edema or compromise but there is cobblestoning the posterior pharynx consistent with sinus drainage Mouth ED: Yes dry mucous membranes Mouth: dry mucous membranes Eyes PERRL and EOMs intact bilaterally Neck supple and no JVD Neck Narrative: Positive anterior cervical lymphadenopathy Resp Resp Narrative: Patient is tachypneic with accessory muscle use. Breath sounds are diminished throughout with diffuse inspiratory and expiratory wheezing Cardio regular rhythm Rate: tachycardic and other Other Details: Radial pulses are +2-4 bilaterally are equal and symmetric GI normal to inspection, nondistended, normoactive bowel sounds, non-tender, non-distended and no masses GI Narrative: No voluntary guarding no rigidity no pulsatile mass Auscultation: normoactive bowel sounds Palpation: soft Extremity normal to inspection Extremity Narrative: No asymmetric edema no pitting edema negative Homans' sign bilaterally Neuro oriented x3 and CN's II-XII intact bilaterally Sensorium / Orientation: alert Motor Exam: strength 5/5 throughout Psych Mood & Affect: anxious Skin no rashes or lesions noted MDM MDM MDM Narrative Medical decision making narrative: Patient presented to the ER on a nonrebreather satting in the 90s but with his room air pulse ox in the 70s there is concern for acute infection or even pulmonary embolus as the cause. Patient states that he is already Covid positive and his history and exam is consistent with inflammation in the lungs leading to respiratory failure. He was placed on high flow nasal cannula and had to be increased to 10 to 12 L to keep his saturations around 90%. CTA was obtained which shows no PE or dissection but it does show inflammation consistent with Covid pneumonia. The patient's troponin is 20 which chart review reveals is at his baseline and with his recent catheterization I do not feel there is need to work-up cardiac disease further. However with the need for supplemental oxygen he does classify as acute respiratory failure with hypoxia and will need to be kept in the hospital for further care. Lab Data Attestation: I reviewed the patient's lab results. Labs: Laboratory Results - last 24 hr 03/09/21 03/09/21 03/09/21 05:54 05:54 05:54 WBC 8.8 RBC 5.68 Hgb 16.7 H Hct 50.2 MCV 88.4 MCH 29.4 MCHC 33.3 RDW Std Deviation 41.1 RDW Coeff of Terell 12.5 Plt Count 261 MPV 11.9 Immature Gran % (Auto) 0.700 Neut % (Auto) 80.3 H Lymph % (Auto) 11.5 L [place] % (Auto) 7.2 Eos % (Auto) 0.0 Baso % (Auto) 0.3 Absolute Neuts (auto) 7.0 Absolute Lymphs (auto) 1.01 Nucleated RBC % 0 PT 12.8 INR 1.0 APTT 28.7 Sodium 139 Potassium 3.7 Chloride 103 Carbon Dioxide 29.0 Anion Gap 7 BUN 16 Creatinine 0.98 Estim Creat Clear Calc 89.64 Est GFR (MDRD) Af Amer 101 Est GFR (MDRD) Non-Af 83 BUN/Creatinine Ratio 16.2 Glucose 173 H Calcium 8.7 Troponin I High Sens 20 Radiography Diagnostic Testing: Clinical Impression(s) from Imaging Studies Chest CTA 03/09/21 06:12 IMPRESSION: 1. No evidence for pulmonary embolism, aortic aneurysm, or aortic dissection. 2. Multifocal pneumonia. Findings are suspicious for, but not specific for, COVID-19 pneumonia. 3. Mild mediastinal and right hilar lymphadenopathy. 4. Small hiatal hernia. Electronically Signed: Brenden Grant MD at 7:44 EST , Service support , Critical Care Time Critical Care Time: Yes Critical care time (excluding procedures): - (Please note critical care time of 33 minutes) Discharge Plan Triage Chief Complaint: Shortness of Breath ED Provider: Yusef Verduzco Dx/Rx/DC Orders Clinical Impression: Pneumonia due to 2019 novel coronavirus, Acute respiratory failure with hypoxia Prescriptions: No Action tamsulosin 0.4 MG capsule 0.4 mg PO DAILY RF: 0 amlodipine 10 mg Tablet 10 mg PO DAILY Qty: 30 RF: 1 metoprolol tartrate 25 mg tablet 25 mg PO DAILY Qty: 30 RF: 1 Primary Care Provider: Care Physician,No Primary Referrals: Care Physician,No Primary [Primary Care Provider] -
[2021-03-09 09:05] LABS: Base Excess 0 mmol/L (-2 to +2); Bicarbonate 24.4 mmol/L (22-26); Blood Gas Specimen Type ART; O2 Delivery Device Cannula; PO2 51 mmHG (75-100); SITE L Radial; SO2 87 % (95-99); Total Carbon Dioxide 26 mmol/L; pCO2 35.7 mmHg (35-45); pH 7.44 (7.35-7.45)
--- NOTE | 2021-03-09 09:16 | EKG12_ITS ---
Test Reason : ADMIT COVID Blood Pressure : / mmHG Vent. Rate : 104 BPM Atrial Rate : 104 BPM P-R Int : 146 ms QRS Dur : 142 ms QT Int : 374 ms P-R-T Axes : 057 -36 000 degrees QTc Int : 491 ms Sinus tachycardia with occasional Premature ventricular complexes Left axis deviation Right bundle branch block Abnormal ECG Confirmed by NEGIN GALEANO, HUDSON ([id number]), medical transcription editor TONO ISSA ([id number]) on 03/12/2021 9:49:12 AM Referred By: ANITHA Confirmed By:HUDSON KAM MD
--- NOTE | 2021-03-09 10:50 | CASEMGMT ---
JAYJAY JUDGE Assessment: RN CM to room to meet with patient for initial transition planning/care coordination assessment. JAYJAY JUDGE introduced self and role at [facility]. Pt voices understanding and consents to assessment at this time. Pt resting in bed with oxygen in place, in no distress at this time. Patient's Tonya at bedside. Pt is A/O at this time and answers all questions appropriately. Care providers, pharmacy, and demographics verified/updated at this time. PCP: Denies. reports was scheduled for appointment to establish care with PCP but was ill and missed appointment. Plans to reschedule. Specialists: Denies Preferred Pharmacy: [facility] [place] Insurance: [employer] Prescription Benefit: yes Living Will/HPOA: Patient denies having living will or HPOA. LNOK: , Tonya Rivera Living Arrangements: Lives with in two story house with no steps to enter the home. Patient states independent with ADLs prior to hospitalization. Social: smokes 1 ppd, denies ETOH use, admits to occasional marijuana use DME/HHC/SNF: Patient denies having any DME in home. Denies previous HHC or SNF stays. 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 Patient reports first tested positive for COVID at [facility] on 03/06/21. states she also has a cough but has not been tested for COVID. Patient's daughter available to retrieve medications and groceries if needed during quarantine period. Patient denies preference of DME company if oxygen were to be needed at time of discharge. [employer] ok. Pt has no concerns with going home at time of discharge. CM to follow for any discharge planning/needs. Pt voices no concerns/needs at this time. Advised pt to ask for CM if any questions/concerns/needs arise. Voices understanding. PLAN: home
--- NOTE | 2021-03-09 11:18 | PCM.CONS.GEN ---
Assessment & Plan Assessment/Plan (1) 2019 novel coronavirus-infected pneumonia (NCIP): PLAN: Sx started 03/02/21, unvaccinated. Isolate for 20 days until 03/21/21. Recommend vaccine. Recommend get tested and pursue Monoclonal Ab. On dex, remdesivir. Will check BNP, LFT, trop, CRP, procal. Reviewed EUA and risks/benefits, he is open to receiving baricitinib. Will see what labs and vital shows prior to ordering. Will follow, thank you (2) Acute respiratory failure with hypoxia: HPI Consult Data Date of Consult: 03/09/21 HPI Narrative HPI Narrative: ROSALINO NORMAN, is a 55 M with h/o COPD, recent heart cath, presented with sx starting 03/02. Unvaccinated. C/o fever, chills, headache, sore throat, cough, SOB, aches. also with mild symptoms. Covid (+) 03/06 in ED, quite hypoxic, left AMA. He came back to ED, being admitted on dex, remdesivir. Full ROS performed and neg except as noted above. [facility] Medical History Anxiety Asthma Bipolar disorder Chest pain COPD (chronic obstructive pulmonary disease) Depression Essential hypertension Hyperlipidemia Smoker Substance abuse Home Medications tamsulosin 0.4 mg PO DAILY 05/09/19 [History Last Taken Unknown] amlodipine 10 mg PO DAILY #30 tab 02/18/21 [Rx Last Taken Unknown] metoprolol tartrate 25 mg PO DAILY #30 tab 02/18/21 [Rx Last Taken Unknown] Allergy/AdvReac Type Severity Reaction Status Date / Time diphenhydramine Allergy Hives Verified 03/09/21 05:33 [From Benadryl] Surgical History History of left heart catheterization (02/17/21) Social History Smoking Status: Current every day smoker tobacco type: cigarettes Physical Exam Const alert and oriented x3 General Appearance: cooperative Exam Limitations: no limitations HEENT normocephalic and head/scalp atraumatic Eyes PERRL and EOMs intact bilaterally Neck supple and No nodes Resp Auscultation: diminished lung sounds Cardio regular rate and regular rhythm GI normal to inspection, nondistended, normoactive bowel sounds Extremity no clubbing, cyanosis or edema Skin no rashes or lesions noted Neuro CN's II-XII intact bilaterally Lab / Micro Data Result Diagrams: 03/09/21 05:54 03/09/21 05:54 Labs: Laboratory Results - last 24 hr 03/09/21 05:54: PT 12.8, INR 1.0, APTT 28.7 03/09/21 05:54: WBC 8.8, RBC 5.68, Hgb 16.7 H, Hct 50.2, MCV 88.4, MCH 29.4, MCHC 33.3, RDW Std Deviation 41.1, RDW Coeff of Terell 12.5, Plt Count 261, MPV 11.9, Immature Gran % (Auto) 0.700, Neut % (Auto) 80.3 H, Lymph % (Auto) 11.5 L, [place] % (Auto) 7.2, Eos % (Auto) 0.0, Baso % (Auto) 0.3, Absolute Neuts (auto) 7.0, Absolute Lymphs (auto) 1.01, Nucleated RBC % 0 03/09/21 05:54: Sodium 139, Potassium 3.7, Chloride 103, Carbon Dioxide 29.0, Anion Gap 7, BUN 16, Creatinine 0.98, Estim Creat Clear Calc 89.64, Est GFR (MDRD) Af Amer 101, Est GFR (MDRD) Non-Af 83, BUN/Creatinine Ratio 16.2, Glucose 173 H, Calcium 8.7, Troponin I High Sens 20 ABG Data ABG results: ABG 03/09/21 08:59 Specimen Type ART Sample Site L Radial pH 7.44 Bicarbonate Actual 24.4 Total CO2 26 Base Excess 0 O2 Saturation 87 L ABG pCO2 35.7 ABG pO2 51 L O2 Delivery Device Cannula Liter Flow 12.0 Radiology Impression Chest CTA 03/09/21 06:12 IMPRESSION: 1. No evidence for pulmonary embolism, aortic aneurysm, or aortic dissection. 2. Multifocal pneumonia. Findings are suspicious for, but not specific for, COVID-19 pneumonia. 3. Mild mediastinal and right hilar lymphadenopathy. 4. Small hiatal hernia. Electronically Signed: Brenden Grant MD at 7:44 EST , Service support ,
[2021-03-09 11:30] LABS: AST(SGOT) 27 U/L (15-37); Alanine Aminotransfer ALT/SGPT 32 U/L (16-61); Albumin, Serum 2.8 g/dL (3.2-5.0); Alkaline Phosphatase 74 U/L (45-117); BNP,B-Type NATRIURETIC PEPTIDE 27.6 pg/mL (0-100); Bilirubin, Direct 0.27 mg/dL (0.00-0.30); CPK Total, Creatine Kinase 36 U/L (39-308); Globulin 4.8 g/dL (2.2-4.2); LDH 371 U/L (87-241); Magnesium 2.1 mg/dL (1.6-2.6); Protein, Total 7.6 g/dL (6.4-8.2)
[2021-03-09 14:44] LABS: AST(SGOT) 26 U/L (15-37); Alanine Aminotransfer ALT/SGPT 32 U/L (16-61); Albumin, Serum 2.6 g/dL (3.2-5.0); Alkaline Phosphatase 73 U/L (45-117); Bilirubin, Direct 0.23 mg/dL (0.00-0.30); Globulin 4.6 g/dL (2.2-4.2); Protein, Total 7.2 g/dL (6.4-8.2); Troponin-I HS 16 pg/mL (3.0-78.0)
[2021-03-09] MEDS: Tamsulosin HCl 0.4 MG Capsule PO (14:46)
[2021-03-09] MEDS: amLODIPine 10 MG Tablet PO (14:46)
[2021-03-09] MEDS: guaiFENesin 1,200 MG Tablet 1200 MG PO ×2 (14:46→22:04)
[2021-03-09] MEDS: Enoxaparin 30 MG/0.3 ML Syringe SC ×2 (14:46→22:04)
[2021-03-09] MEDS: Metoprolol Tartrate 25 MG Tablet PO (14:47)
[2021-03-09 14:50] LABS: Fibrinogen 711 mg/dl (203-444)
[2021-03-09 14:52] LABS: D-Dimer Quantitative (DVT/PE) 1.14 FEU/ug/m (0.27-0.49)
[2021-03-09] MEDS: 0.9% Saline Lock 10 ML Syringe IV ×2 (15:24→22:04)
[2021-03-09] MEDS: Ipratropium/Albuterol Sulfate 3 ML AMPUL.NEB INHALATION ×2 (15:27→19:22)
[2021-03-09] MEDS: Ibuprofen 400 MG Tablet PO (16:32)
[2021-03-10] VITALS (11 sets, daily range): BP systolic 111–156; BP diastolic 56–86; PULSE 62–84; RESP 16–20; TEMP 36.2–36.6; O2SAT 91–94
[2021-03-10 05:26] LABS: Absolute Lymphocyte Count 0.98 X10^3/uL (0.83-4.51); Basophil# 0.01 X10^3/uL; Basophil% 0.1 % (0-1); Hematocrit 47.4 % (40-54); Hemoglobin 15.9 g/dL (13.0-16.5); Lymphocyte # 0.98 X10^3/ul (0.83-4.51); Lymphocyte % 8.2 % (19-41); Mean Corp Hgb Conc 33.5 g/dL (32-36); Mean Corpuscular Hgb 29.5 pg (27.0-32.0); Mean Corpuscular Volume 87.9 fL (80-94); Mean Platelet Vol. 11.6 fl (6.2-12.0); Monocyte# 0.81 X10^3/uL; Monocyte% 6.8 % (0-10); NRBC Flagged by Analyzer 0 % (0-5); Neutrophil # 10.02 X10^3/uL (2.7-7.7); Neutrophil % 84.4 % (47-70); Platelet Count 255 K/mm3 (150-450); RBC Distribution Width CV 12.3 % (11.6-14.6); Red Blood Count 5.39 M/mm3 (4.6-6.2); White Blood Count 11.9 K/mm3 (4.4-11.0)
[2021-03-10 05:56] LABS: ALB/GLOB Ratio 0.5 RATIO (0.9-2.4); AST(SGOT) 32 U/L (15-37); Alanine Aminotransfer ALT/SGPT 39 U/L (16-61); Albumin, Serum 2.4 g/dL (3.2-5.0); Alkaline Phosphatase 70 U/L (45-117); Anion Gap 8 (5-15); BUN 21 mg/dL (7-18); Calcium,Total 8.6 mg/dL (8.5-10.1); Chloride 107 mmol/L (98-107); Creatinine, Serum 0.66 mg/dL (0.70-1.30); EST Glomerular Filtration Rate 133 mL/min (>60); Est Glom Filt Rate - Afr Amer 161 mL/min (>60); Estimated Creatinine Clearance 133.11 ml/min; Globulin 4.7 g/dL (2.2-4.2); Glucose 173 mg/dL (74-106); Potassium 4.2 mmol/L (3.5-5.1); Protein, Total 7.1 g/dL (6.4-8.2); Sodium Level 138 mmol/L (136-145)
[2021-03-10] MEDS: Ipratropium/Albuterol Sulfate 3 ML AMPUL.NEB INHALATION ×3 (07:25→15:27)
[2021-03-10] MEDS: guaiFENesin 1,200 MG Tablet 1200 MG PO (10:10)
[2021-03-10] MEDS: Tamsulosin HCl 0.4 MG Capsule PO (10:10)
[2021-03-10] MEDS: amLODIPine 10 MG Tablet PO (10:10)
[2021-03-10] MEDS: Metoprolol Tartrate 25 MG Tablet PO (10:10)
[2021-03-10] MEDS: Enoxaparin 30 MG/0.3 ML Syringe SC (10:10)
[2021-03-10] MEDS: dexAMETHasone 4 MG Tablet 6 MG PO (10:14)
--- NOTE | 2021-03-10 13:36 | PCM.PN.ID ---
Physical Exam Narrative Feeling better, no fever, no n/v/d, less SOB Const alert General Appearance: cooperative Resp Auscultation: diminished lung sounds Cardio regular rate and regular rhythm GI soft to palpation, non-tender and non-distended Extremity no clubbing, cyanosis or edema Skin no rashes or lesions noted ID ID: Route of nutrition/ use of supplements: [] Nutritional Intake: [] IV Site: [] Carlin Catheter: [] Assessment & Plan Assessment/Plan (1) 2019 novel coronavirus-infected pneumonia (NCIP): PLAN: Sx started 03/02/21, unvaccinated. Isolate for 20 days until 03/21/21. Recommend vaccine. Recommend get tested and pursue Monoclonal Ab. On dex, remdesivir. Much improved O2 today, no need for baricitinib at this time. Will follow (2) Acute respiratory failure with hypoxia:
--- NOTE | 2021-03-10 15:50 | PN.HOSP_ITS ---
Subjective Subjective Patient reports that he is having continued coughing and shortness of breath most notably with exertion. He has been able to be weaned to 8 L heated high flow nasal cannula from 12 to 13 L yesterday. Oxygen saturations are in the mid 90s on his current supplemental oxygen. Objective Data Objective Data Vital Signs: Vital Signs Temp Pulse Resp BP Pulse Ox 97.2 F L 75 16 154/74 H 94 03/10/21 13:39 03/10/21 14:39 03/10/21 15:28 03/10/21 13:39 03/10/21 13:39 Oxygen Flow Rate (L/min) 8 Oxygen Delivery Method High Flow Weight: 104.5 kg Body Mass Index (BMI) 32.1 Intake & Output: Intake and Output for Last 24 Hours 03/08/21 03/09/21 03/10/21 23:59 23:59 23:59 Intake Total 1490 / 1490 730 / 730 Balance 1490 / 1490 730 / 730 Lab / Micro Data Result Diagrams: 03/10/21 05:08 03/10/21 05:08 Labs: Laboratory Results - last 24 hr 03/10/21 05:08: WBC 11.9 H, RBC 5.39, Hgb 15.9, Hct 47.4, MCV 87.9, MCH 29.5, MCHC 33.5, RDW Std Deviation 40.0, RDW Coeff of Terell 12.3, Plt Count 255, MPV 11.6, Immature Gran % (Auto) 0.500, Neut % (Auto) 84.4 H, Lymph % (Auto) 8.2 L, [place] % (Auto) 6.8, Eos % (Auto) 0.0, Baso % (Auto) 0.1, Absolute Neuts (auto) 10.0 H, Absolute Lymphs (auto) 0.98, Nucleated RBC % 0 03/10/21 05:08: Sodium 138, Potassium 4.2, Chloride 107, Carbon Dioxide 23.0, Anion Gap 8, BUN 21 H, Creatinine 0.66 L, Estim Creat Clear Calc 133.11, Est GFR (MDRD) Af Amer 161, Est GFR (MDRD) Non-Af 133, BUN/Creatinine Ratio 32.0 H, Glucose 173 H, Calcium 8.6, Total Bilirubin 0.50, AST 32, ALT 39, Alkaline Phosphatase 70, Total Protein 7.1, Albumin 2.4 L, Globulin 4.7 H, Albumin/Globulin Ratio 0.5 L Micro: Microbiology 03/10/21 10:15 Interface Orders Legionella Antigen - Final 03/10/21 10:15 Interface Orders Streptococcus pneumoniae Antigen (M - Final Physical Exam Const alert, oriented x3, no apparent distress and well nourished Constitutional Narrative: Overweight middle-aged white male sitting up in bed, watching television, appears as if he is not feeling well but nontoxic. Exam Limitations: no limitations Nutritional Appearance: overweight HEENT head/scalp atraumatic and moist oral mucous membranes HEENT Narrative: Mallampati 2-3, no thrush Head and Scalp: normocephalic Resp normal respiratory effort, no retractions, no use of accessory muscles and clear to auscultation bilaterally Resp Narrative: Diffuse but clear, no tachypnea Auscultation: Negative for crackles, rales, rhonchi or wheezes Cardio regular rate, regular rhythm, S1 normal heart sound, S2 normal heart sound, no murmurs, no rub, no gallops, no clicks and no JVD GI normal to inspection, nondistended, normoactive bowel sounds, soft to palpation, non-tender and non-distended Extremity no clubbing, cyanosis or edema Peripheral Pulses: Yes pulses 2+ throughout Neuro oriented x3, moves all extremities and no focal motor deficits Sensorium / Orientation: awake and alert Speech: speech normal Assessment & Plan Assessment/Plan (1) Acute respiratory failure with hypoxia: (2) Pneumonia due to 2019 novel coronavirus: (3) Hyperglycemia: PLAN: Acute hypoxic respiratory failure secondary to COVID-19 pneumonia -Symptoms started 03/02/2021 and patient will need isolation until 03/21/2021 -Unvaccinated on presentation -Continue Decadron and remdesivir -No current needs for baricitinib -I-S and Pep therapy -Start Tessalon Perles -Continue Mucinex -Patient is currently on 8 L nasal cannula and this has been able to be weaned in the last 24 hours -10 you to monitor and wean as able -Appreciate infectious disease input -Recommend pulmonary follow-up after discharge Steroid-induced hyperglycemia -We will check a hemoglobin A1c -No current needs for any insulin therapy -Goal blood sugars are 140-180 -If hemoglobin A1c is greater than 6.5 will consider SSI to cover prandial elevations Hypertension -Blood pressures remain elevated -Continue amlodipine 10 mg daily -Continue metoprolol 25 mg daily -May need to uptitrate or add further therapy but elevated pressures could also be related to his steroid therapy History of nephrolithiasis -Continue Flomax Obesity -BMI 32.1 -Recommend weight loss -Complicates treatment, prognosis, outcomes Tobacco abuse -Recommend cessation DVT prophylaxis Enoxaparin 30 mg twice daily CODE STATUS -Full code Charges/Coding Visit Charges Inpatient E&M: 68725 Subs Hosp L2
--- NOTE | 2021-03-10 18:56 | NURSING ---
Addendum entered by Nicolasa Damon 03/10/21 18:58: Dr. Peraza was notified by scrum project manager about event. Original Note: Pt had a fight with his about bringing his belongings in. This RN tried to call her earlier in the day about it which she didn't answer and there was no voicemail box. Pt was also sick and symptomatic for COVID, she told pt she was going to come to ED and be seen, she contacted insurance and told him that they were sending a nurse tomorrow. When pt found this information out he became agitated and wanted to go home with . The nurse and special agent in charge educated the pt on how much oxygen he was on and what could happen if he left without any. This RN and special agent in charge went down to talk to the at the front entrance and she stated she wanted him to stay but the pt was going to be mad at her if she just left. At this time this RN talked on the phone with pt with at front entrance in which he said she better not fucking leave me, I'm taking my own IV out. This RN took the patients belongings upstairs hoping that he would have and calm down. The patient was at the door to the elevators at this point continuing to insist he was leaving. AMA papers were printed he was again told the risk of what leaving could meant to him and signed the papers and proceeded to ask this RN to push him downstairs in which we stated no we could not since he left AMA. So he got out of the wheelchair and threw it at the doors causing a loud slam and went downstairs. This RN could see the patient was sitting on the couch looking out of breath so with oxygen went downstairs to see if he needed it, at this time the pt has already got into his 's car and was heading out drive. At the time of leaving it's believed the pt still had his IV in.
== END 2021-03-10 18:43 | disposition home or self-care (01) | DRG 137 ==
LOC: ED 06:40 → PCU 12:38
PROVIDERS: Internal Medicine Infectious Disease; Admitting Provider Internal Medicine; Emergency Provider Emergency Medicine; Visit Provider Internal Medicine
DX: U07.1 COVID-19 (principal); J12.82 Pneumonia due to coronavirus disease 2019; J96.01 Acute respiratory failure with hypoxia; J44.1 Chronic obstructive pulmonary disease with (acute) exacerbation; I10 Essential (primary) hypertension; E78.5 Hyperlipidemia, unspecified; J44.0 Chronic obstructive pulmonary disease with (acute) lower respiratory infection; F17.210 Nicotine dependence, cigarettes, uncomplicated; Z87.442 Personal history of urinary calculi; Z28.3 Underimmunization status; F31.9 Bipolar disorder, unspecified; Z66 Do not resuscitate
CPT/HCPCS: 36415; 36600; 71275; 80048; 80053; 80076; 82550; 82803; 83605; 83615; 83735; 83880; 84145; 84484; 85025; 85379; 85384; 85610; 85730; 86140; 87040; 87426; 87449; 93005; 94640; 94667; 94668; 96374; 99251; 99285; J7040; J7050; Q9967; 90686; A4216; G0463; J0248